=== PATIENT | male | born 1955 | race Asian ===

== ENCOUNTER 2023-07-02 03:32 | Inpatient (IN) | payer MEDICARE, OTHER, SELFPAY ==
[2023-07-02] VITALS (63 sets, daily range): BP systolic 94–177; BP diastolic 55–99; PULSE 19–119; RESP 12–35; TEMP 36.1–37; O2SAT 86–100; BMI 27.4
--- NOTE | 2023-07-02 | PATH_ITS ---
[facility] Accession Number: [id number] No. of containers..01 Tissue . 01 Material submitted: . gallbladder - GALLBLADDER . 01 Diagnosis: Gallbladder, Cholecystectomy: Acute cholecystitis with cholelithiasis and serositis. Negative for dysplasia and malignancy. [facility] 07/06/2023 1434 Local . 01 Electronically signed: . Jacqueline Hagen MD, Pathologist NPI- [id number] . 01 Gross description: . The specimen is received in formalin labeled with the patient's name, , and gallbladder, and consists of a disrupted gallbladder measuring 7.7 x 3.5 x 2.9 cm with a full-thickness defect at the fundus measuring 0.1 cm in greatest dimension. The cystic duct margin is inked blue. A pericystic lymph node is identified measuring 1.1 cm in greatest dimension. The lumen contains two orange-red faceted calculi measuring up to 1.4 cm in greatest dimension not grossly obstructing the cystic duct, with minimal peacock viscous bile. The mucosa is pink-peacock and velvety with no yellow discoloration, polyps, or lesions identified. The prieot average 0.4 cm thick. [employer] sections to include the cystic duct margin, one-half of the bisected lymph node candidate, and full-thickness sections are submitted in cassette A1. ([id number]) /FRR 07/03/20232023 Local . 01 Pathologist provided ICD-10: K80.62 . 01 CPT . 418892 Specimen Comment: A courtesy copy of this report has been sent to [phone] Performed at: 01 [facility] [address] [place] [address], [place], [place] [id number] MD Jasvir Garcia MD Phone: [phone]
--- NOTE | 2023-07-02 03:40 | DI.RAD.S_ITS ---
PROCEDURE: XR ACUTE ABDOMEN SERIES INDICATIONS: Abdominal pain, N/V TECHNIQUE: One view chest and two views of the abdomen were acquired. COMPARISON: None. FINDINGS: Surgical changes and devices: None. Chest: Lungs are clear. Heart size is normal. No pleural effusions. No pneumoperitoneum. Abdomen: Bowel gas pattern is normal. No suspicious calcifications. Visualized solid organ contours appear normal. Moderate colonic stool load. Bones: No suspicious bony lesions. IMPRESSION: No acute abnormality. Agree with preliminary report. Dictated by: Deyvi Fitzpatrick M.D. on 07/02/2023 at 8:12 Approved by: Deyvi Fitzpatrick M.D. on 07/02/2023 at 8:13
--- NOTE | 2023-07-02 03:41 | ED.GENADULT ---
HPI - General Adult General Chief complaint: Abdominal Pain Stated complaint: food posioning Time Seen by Provider: 07/02/23 03:34 History of Present Illness HPI narrative: 68-year-old male nonsmoker with history of diabetes on insulin presents with family in the chief complaint of 4-5 hours of multiple episodes of vomiting in crampy abdominal pain. He is concerned that maybe he ate something bad but admits nobody else in his group feels ill. He denies runny nose, sore throat or cough. He is had no chest pain or shortness of breath. His abdominal pain is crampy in nature and without any obvious provocation or palliation. He denies constipation or diarrhea and has no urinary complaints. He denies any missed doses of his diabetic regimen nor any change to his routine. Related Data Allergies Allergy/AdvReac Type Severity Reaction Status Date / Time No Known Drug Allergies Allergy Verified 07/02/23 03:45 Review of Systems Review of Systems Narrative: GENERAL: Denies chills, fatigue, malaise, fever, sweats. HEENT: Denies sinus pain, ear pain, sore throat, difficulty swallowing, dizziness. RESPIRATORY: Denies dyspnea, cough, wheezing, hemoptysis, sputum. CARDIOVASCULAR: Denies chest pain, palpitations, orthopnea, edema, GASTROINTESTINAL: See HPI : Denies dysuria, frequency, incontinence, hematuria, urinary retention. MUSCULOSKELETAL: denies weakness, joint pain, or bony pain SKIN: Denies rash, skin lesions, or other NEUROLOGIC: Denies weakness, headache, numbness, change in speech, confusion, seizures, incoordination. PSYCHIATRIC: No concerning psychosocial issues. 12 point review of systems is negative except for those stated above Patient History Medical History (Updated 07/02/23 @ 06:56 by Ata Henderson DO) Hypertension Diabetes Social History Smoking Status: Never smoker Exam Narrative Exam Narrative: GENERAL: [68] year old patient appears stated age. Well-developed patient, in obvious distress, clearly uncomfortable HEAD: Atraumatic. Normocephalic. EYES: Pupils equal round and reactive. Extraocular motions intact. No scleral icterus. No injection or drainage. ENT: Nose without bleeding, purulent drainage. Throat without erythema, tonsillar hypertrophy or exudate. Airway patent. NECK: Trachea midline. Non tender CARDIOVASCULAR: Regular rate and rhythm without murmurs, gallops, or rubs. RESPIRATORY: Clear to auscultation. Breath sounds equal bilaterally. No wheezes, rales, or rhonchi. GASTROINTESTINAL: Abdomen soft, non-tender, nondistended. EXTREMITIES: No edema or joint tenderness. BACK: Nontender without deformity or crepitance. No flank tenderness. NEURO: AOx3. SKIN: No rash or erythema of visible areas Initial Vital Signs Initial Vital Signs: Vital Signs Pulse Rate 88 07/02/23 03:41 Respiratory Rate 24 07/02/23 03:41 Pulse Oximetry 100 07/02/23 03:41 Course Orders Ordered: ED Orders 07/02/23 03:40 XR acute abdomen series Stat VBG [Venous Blood Gas] Stat 07/02/23 03:59 Comprehensive Metabolic Panel Stat Ketones (Beta-Hydroxybutyrate) Stat Lactate (Lactic Acid) Stat Magnesium Stat 07/02/23 04:25 Complete Blood Count AUTO DIFF Stat 07/02/23 04:50 CT abdomen pelvis w con Stat Urine Microscopic Stat 07/02/23 05:35 US abdomen limited Stat Magnesium Sulfate (Magnesium Sulfate) 2 gm in 50 mls @ 25 mls/hr IV NOW ONE Stop: 07/02/23 07:15 Last Admin: 07/02/23 05:32 Dose: 25 mls/hr Documented By: PRASANNA Co-signed By: LIBERTAD Discontinued Medications Hydromorphone HCl (Hydromorphone 0.5 Mg Inj) 0.5 mg IV NOW ONE Stop: 07/02/23 04:51 Last Admin: 07/02/23 04:53 Dose: 0.5 mg Documented By: Lactated Ringer's (Lactated Ringers) 1,000 mls @ 1,000 mls/hr IV BOLUS ONE Stop: 07/02/23 04:39 Last Infusion: 07/02/23 05:11 Dose: Infused Documented By: Admin: 07/02/23 04:09 Dose: 1,000 mls/hr Documented By: LIBERTAD Lactated Ringer's (Lactated Ringers) 1,000 mls @ 1,000 mls/hr IV BOLUS ONE Stop: 07/02/23 05:49 Last Infusion: 07/02/23 06:25 Dose: Infused Documented By: Admin: 07/02/23 04:56 Dose: 1,000 mls/hr Documented By: Piperacillin Sod/Tazobactam (Sod 4.5 gm/ Sodium Chloride) 100 mls @ 200 mls/hr IV NOW ONE Stop: 07/02/23 05:36 Last Admin: 07/02/23 06:35 Dose: 200 mls/hr Documented By: Metoclopramide HCl (Metoclopramide 10 Mg/2 Ml Inj) 10 mg IV NOW ONE Stop: 07/02/23 03:41 Last Admin: 07/02/23 04:09 Dose: 10 mg Documented By: LIBERTAD Metoprolol Tartrate (Metoprolol Ir 25 Mg Tablet) 25 mg PO NOW ONE Stop: 07/02/23 05:46 Last Admin: 07/02/23 05:50 Dose: 25 mg Documented By: Ondansetron HCl (Ondansetron 4 Mg/2 Ml Inj) 4 mg IV NOW ONE Stop: 07/02/23 04:13 Last Admin: 07/02/23 04:14 Dose: 4 mg Documented By: LIBERTAD Pantoprazole Sodium (Pantoprazole 40 Mg Vial) 40 mg IV NOW ONE Stop: 07/02/23 03:41 Last Admin: 07/02/23 04:09 Dose: 40 mg Documented By: LIBERTAD Reevaluation(s) Reevaluation #1: patient had brief run of nonsustained asymptomatic VT of 6-7 beats. Patient had missed a dose of his metoprolol. No further episodes after back on his metop Consultations Consultation #1: Dr. Bey happy to admit, requests hospitalist consult Consultation #2: Dr. Lee (Hospitalist) happy to consult Vital Signs Vital signs: Vital Signs - 8 hr 07/02/23 03:41 07/02/23 03:42 07/02/23 04:00 Temperature 97.7 F Pulse Rate 88 88 93 H Respiratory Rate 24 18 Blood Pressure 142/68 H Pulse Oximetry 100 100 100 Oxygen Delivery Method Room Air 07/02/23 04:10 07/02/23 04:10 07/02/23 04:43 Temperature Pulse Rate 96 H 101 H Respiratory Rate 29 H Blood Pressure 132/66 Pulse Oximetry 100 100 Oxygen Delivery Method 07/02/23 04:44 07/02/23 04:44 07/02/23 05:00 Temperature Pulse Rate 97 H 106 H Respiratory Rate 22 Blood Pressure 158/91 H Pulse Oximetry 100 100 Oxygen Delivery Method 07/02/23 05:13 07/02/23 05:13 07/02/23 05:30 Temperature Pulse Rate 119 H Respiratory Rate Blood Pressure 177/99 H 164/78 H Pulse Oximetry 100 Oxygen Delivery Method 07/02/23 05:30 07/02/23 06:00 07/02/23 06:00 Temperature Pulse Rate 96 H 97 H Respiratory Rate Blood Pressure 165/87 H Pulse Oximetry 100 99 Oxygen Delivery Method Medical Decision Making Lab Data 07/02/23 04:25 07/02/23 03:59 Labs: Lab Results 07/02/23 07/02/23 07/02/23 Range/Units 03:40 03:59 04:25 WBC 18.7 H (4.5-11.0) X10^3/uL RBC 5.23 (4.5-5.9) X10^6/uL Hgb 15.3 (13.5-17.5) g/dL Hct 46.4 (41-53) % MCV 88.8 (80-100) fL MCH 29.3 (26-34) PG MCHC 33.0 (30-36) % RDW 14.4 (11.6-14.8) % Plt Count 320 (150-400) X10^3/uL Neut % (Auto) Not Reportable Lymph % (Auto) Not Reportable [place] % (Auto) Not Reportable Eos % (Auto) Not Reportable Baso % (Auto) Not Reportable Lymph # (Auto) Not Reportable [place] # (Auto) Not Reportable Baso # (Auto) Not Reportable Total Counted 100 Seg Neutrophils % 84.0 H (38-70) % Band Neutrophils % 2.0 L (3-7) % Lymphocytes % (Manual) 9.0 L (25-45) % Monocytes % (Manual) 5.0 (2-11) % Neutrophils # (Manual) 79386 H (5023-8823) /uL RBC Morphology Normal morphology VBG pH 7.61 H (7.33-7.43) VBG pCO2 19.0 L (45-50) mmHg VBG pO2 22 L (35-45) mmHg VBG HCO3 19 L (24-28) mmol/L VBG Total CO2 19 L (24-29) mmol/L VBG O2 Saturation 52 L (70-75) % VBG Base Excess -3.0 L (0-4) mmol/L FiO2 21 Sodium 139 (137-145) mmol/L Potassium 3.7 (3.4-5.1) mmol/L Chloride 102 (98-107) mmol/L Carbon Dioxide 17 L (22-32) mmol/L BUN 14 (9-20) mg/dL Creatinine 0.86 (0.66-1.25) mg/dL Estimated GFR > 60 (>60) mL/min BUN/Creatinine Ratio 16.3 (6-22) Glucose 241 H (80-110) mg/dL Lactate 5.9 H* (0.7-2.1) mmol/L Calcium 10.2 (8.4-10.2) mg/dL Magnesium 1.5 L (1.6-2.3) mg/dL Total Bilirubin 0.6 (0.2-1.3) mg/dL AST 32 (17-59) IU/L ALT 52 H (<50) IU/L Alkaline Phosphatase 91 (38-126) U/L Total Protein 8.9 H (6.3-8.2) g/dL Albumin 4.7 (3.5-5.0) g/dL Globulin 4.2 H (1.7-4.1) g/dL Albumin/Globulin Ratio 1.1 (1.0-2.8) Urine RBC (0-5/HPF) Urine WBC (0-5/HPF) Ur Squamous Epith Cells (0-5/HPF) Urine Bacteria (None) Ur Culture Indicated? Ketones 0.64 H (<0.27) mmol/L 07/02/23 07/02/23 Range/Units 04:50 05:55 WBC (4.5-11.0) X10^3/uL RBC (4.5-5.9) X10^6/uL Hgb (13.5-17.5) g/dL Hct (41-53) % MCV (80-100) fL MCH (26-34) PG MCHC (30-36) % RDW (11.6-14.8) % Plt Count (150-400) X10^3/uL Neut % (Auto) Lymph % (Auto) [place] % (Auto) Eos % (Auto) Baso % (Auto) Lymph # (Auto) [place] # (Auto) Baso # (Auto) Total Counted Seg Neutrophils % (38-70) % Band Neutrophils % (3-7) % Lymphocytes % (Manual) (25-45) % Monocytes % (Manual) (2-11) % Neutrophils # (Manual) (3470-7625) /uL RBC Morphology VBG pH (7.33-7.43) VBG pCO2 (45-50) mmHg VBG pO2 (35-45) mmHg VBG HCO3 (24-28) mmol/L VBG Total CO2 (24-29) mmol/L VBG O2 Saturation (70-75) % VBG Base Excess (0-4) mmol/L FiO2 Sodium (137-145) mmol/L Potassium (3.4-5.1) mmol/L Chloride (98-107) mmol/L Carbon Dioxide (22-32) mmol/L BUN (9-20) mg/dL Creatinine (0.66-1.25) mg/dL Estimated GFR (>60) mL/min BUN/Creatinine Ratio (6-22) Glucose (80-110) mg/dL Lactate 4.9 H* (0.7-2.1) mmol/L Calcium (8.4-10.2) mg/dL Magnesium (1.6-2.3) mg/dL Total Bilirubin (0.2-1.3) mg/dL AST (17-59) IU/L ALT (<50) IU/L Alkaline Phosphatase (38-126) U/L Total Protein (6.3-8.2) g/dL Albumin (3.5-5.0) g/dL Globulin (1.7-4.1) g/dL Albumin/Globulin Ratio (1.0-2.8) Urine RBC None seen (0-5/HPF) Urine WBC None seen (0-5/HPF) Ur Squamous Epith Cells None seen (0-5/HPF) Urine Bacteria None seen (None) Ur Culture Indicated? Cult not indicated Ketones (<0.27) mmol/L Point of Care Testing Glucose POC 225 Urine Dip Bedside Urine Glucose 1000 mg/dl Bedside Urine Bilirubin - Negative Bedside Urine Ketone ++ 40 Urine Specific [place] 1.01 Bedside Urine Occult Blood - Negative Bedside Urine pH 6 Bedside Urine Protein - Negative Bedside Urine Urobilinogen - Negative Bedside Urine Nitrite - Negative Bedside Urine Leukocytes - Negative Esterase Point of care testing: Point of Care Testing Glucose POC 225 Urine Dip Bedside Urine Glucose 1000 mg/dl Bedside Urine Bilirubin - Negative Bedside Urine Ketone ++ 40 Urine Specific [place] 1.01 Bedside Urine Occult Blood - Negative Bedside Urine pH 6 Bedside Urine Protein - Negative Bedside Urine Urobilinogen - Negative Bedside Urine Nitrite - Negative Bedside Urine Leukocytes - Negative Esterase MDM Narrative Medical decision making narrative: [68] year old patient presents with nausea vomiting abdominal pain Multiple etiologies for patient's symptoms considered including, but not limited to: [diabetic complication vs. bowel obstruction vs. foodborne illness vs. other] Prior Charts reviewed in our EMR Primary Historian: patient Labs reviewed and interpreted by myself: Leukocytosis with relative left shift, primary electrolytes within normal limits, and CO2 slightly down at 17, renal function 0.86. Glucose initially 241, after fluids down to the 140s. Initial lactate 5.9, down to 4.9, initial magnesium 1.5 (prior to replacement). Bilirubin 0.6, AST 32, ALT 52, alk-phos 91 Imaging reviewed: CT of abdomen and pelvis demonstrates acute cholecystitis with possible choledocholithiasis. Ultrasound shows acute cholecystitis with stones lodged in the neck with gallbladder thickening and sludge Consultations: Discussed with on-call General surgery, we sure the opinion that patient is likely cholecystitis, choledocholithiasis seems unlikely given lack of obstructive pattern of labs. Patient's symptoms improved over duration of stay with above-stated therapies. Pain well controlled, vital signs stable, no longer vomiting, blood sugar improved, lactate improving. Discharge Plan Departure Patient Disposition: Admitted As Inpatient Clinical Impression: Acute cholecystitis, Cholelithiasis, Hypomagnesemia, Acute hyperglycemia, Arrhythmia Admit Date/Time: 07/02/23 06:41 Admit Provider: Parviz Bey
[2023-07-02 03:58] LABS: HCO3 VBG 19 mmol/L (24-28); PO2 VBG 22 mmHg (35-45); pH VBG 7.61 (7.33-7.43)
[2023-07-02 03:59] LABS: Fractionated Inspired Oxygen 21; Oxygen Saturation VBG 52 % (70-75); Total CO2 VBG 19 mmol/L (24-29)
[2023-07-02] MEDS: PANTOPRAZOLE 40 MG VIAL IV (04:09)
[2023-07-02] MEDS: LACTATED RINGERS 1,000 ML 1000 ML IV ×2 (04:09→04:56)
[2023-07-02] MEDS: METOCLOPRAMIDE 10 MG/2 ML INJ IV (04:09)
[2023-07-02] MEDS: ONDANSETRON 4 MG/2 ML INJ IV (04:14)
[2023-07-02 04:20] LABS: Alanine Aminotransferase 52 IU/L (<50); Albumin 4.7 g/dL (3.5-5.0); Albumin Globulin Ratio 1.1 (1.0-2.8); Alkaline Phosphatase 91 U/L (38-126); Aspartate Aminotransferase 32 IU/L (17-59); BUN Creatinine Ratio 16.3 (6-22); Bilirubin Total 0.6 mg/dL (0.2-1.3); Blood Urea Nitrogen 14 mg/dL (9-20); Calcium 10.2 mg/dL (8.4-10.2); Carbon Dioxide 17 mmol/L (22-32); Chloride 102 mmol/L (98-107); Estimated Glomerular Filt Rate > 60 mL/min (>60); Globulin 4.2 g/dL (1.7-4.1); Glucose 241 mg/dL (80-110); Magnesium 1.5 mg/dL (1.6-2.3); Potassium 3.7 mmol/L (3.4-5.1); Sodium 139 mmol/L (137-145); Total Protein 8.9 g/dL (6.3-8.2)
[2023-07-02 04:24] LABS: Ketones (Beta-Hydroxybutyrate) 0.64 mmol/L (<0.27)
[2023-07-02 04:27] LABS: HEMOLYSIS 61 (0-50)
[2023-07-02 04:29] LABS: Lactate (Lactic Acid) 5.9 mmol/L (0.7-2.1)
[2023-07-02 04:38] LABS: Add Manual Diff / Slide Review YES; Hematocrit 46.4 % (41-53); Hemoglobin 15.3 g/dL (13.5-17.5); Mean Corpuscular Hemoglobin 29.3 PG (26-34); Mean Corpuscular Volume 88.8 fL (80-100); Platelet Count 320 X10^3/uL (150-400); Red Blood Cell Count 5.23 X10^6/uL (4.5-5.9); Red Cell Distribution Width 14.4 % (11.6-14.8); White Blood Cell Count 18.7 X10^3/uL (4.5-11.0)
--- NOTE | 2023-07-02 04:50 | DI.CT.S_ITS ---
PROCEDURE: CT ABDOMEN PELVIS W CON INDICATIONS: severe abdominal pain, N/V TECHNIQUE: After the administration of IV contrast, axial sections were acquired from the lung bases to the pubic symphysis. Coronal and sagittal reformats were performed. For radiation dose reduction, the following was used: automated exposure control, adjustment of mA and/or kV according to patient size. COMPARISON: [facility], CR, XR ACUTE ABDOMEN SERIES, 07/02/2023, 4:18. [facility], US, US ABDOMEN LIMITED, 07/02/2023, 6:03. FINDINGS: Image quality: Excellent. Lung bases: No pleural effusion. Heart: Coronary artery calcifications. ABDOMEN: Liver: No focal lesion. Gallbladder: Distended. Gallstones near the neck. No pericholecystic fluid is appreciated. Biliary ducts: CBD measures 1.4 cm. There is a heterogeneous appearance within the CBD. Increased conspicuity within the intrahepatic bile ducts. Pancreas: No pancreatic ductal dilatation. No peripancreatic fluid collection. Spleen: No splenomegaly. Adrenal Glands: No nodule. Kidneys and Ureters: No hydronephrosis. Small nonobstructing left kidney stone measuring 0.4 cm. Small benign renal cysts. Stomach and Bowel: Small hiatal hernia. No small bowel obstruction. No diverticulitis. Normal appendix. Peritoneum: No abnormal intraperitoneal fluid. No free air. Ventral Wall: No hernia. Abdominal Nodes: No retroperitoneal or mesenteric adenopathy by size criteria. Vessels: Aorta and inferior vena cava are normal in size. PELVIS: Pelvic Organs: Prominent prostate gland. Bladder: No stone. Pelvic Nodes: No enlarged lymph nodes. Miscellaneous: Probable fat containing right inguinal hernia. Bones: No suspicious lesion. Bilateral L5 pars defect. IMPRESSION: 1. Suspect choledocholithiasis. Biliary ductal dilatation. ERCP and/or MRCP are recommended. 2. Suspect acute cholecystitis. This report is concordant with the overnight preliminary interpretation. Dictated by: Ascencion Lang M.D. on 07/02/2023 at 9:00 Approved by: Ascencion Lang M.D. on 07/02/2023 at 9:13
[2023-07-02] MEDS: HYDROMORPHONE 0.5 MG INJ IV ×3 (04:53→07:57)
[2023-07-02] MEDS: MAGNESIUM SULFATE 2 GM/50 ML PIGGYBACK IV (05:32)
--- NOTE | 2023-07-02 05:35 | DI.US.S_ITS ---
PROCEDURE: US ABDOMEN LIMITED INDICATIONS: PAIN, N/V TECHNIQUE: Real-time scanning was performed of the abdominal and retroperitoneal organs, with image documentation. COMPARISON: None. FINDINGS: Liver: Increased liver echogenicity with posterior attenuation, most consistent with moderate to severe steatosis. Gallbladder: Cholelithiasis, with non mobile gallstones in the neck. Positive sonographic Stevenson sign. Gallbladder hydrops. No wall thickening. Biliary ducts: Intrahepatic bile ducts are non-dilated. Extrahepatic bile duct caliber measures 8 mm. Normal is 6-7 mm or less in diameter, or 10 mm or less post-cholecystectomy. Miscellaneous: No free abdominal fluid. IMPRESSION: Nonmobile gallstones, positive sonographic Stevenson sign and gallbladder distension. Findings consistent with acute cholecystitis. At least moderate hepatic steatosis. Agree with preliminary report. Dictated by: Deyvi Fitzpatrick M.D. on 07/02/2023 at 8:14 Approved by: Deyvi Fitzpatrick M.D. on 07/02/2023 at 8:16
[2023-07-02 05:36] LABS: Bacteria Urine None Seen; Culture Indicated Urine Cult Not Indicated; RBC Urine None Seen (0-5/HPF); Squamous Epithelial Cell Urine None Seen (0-5/HPF); WBC Urine None Seen (0-5/HPF)
[2023-07-02 05:43] LABS: Neutrophils Absolute Manual 16082 /uL (3000-5900); Total Cells Counted 100
[2023-07-02 05:44] LABS: RBC Morphology Normal Morphology
--- NOTE | 2023-07-02 05:46 | PC.NURSE ---
Pt with frequent runs of PVCs noted. EKG completed and shown to provider. Pt reports he has a heart condition and is suppose to take metoprolol.
[2023-07-02] MEDS: METOPROLOL IR 25 MG TABLET PO (05:50)
[2023-07-02 06:05] LABS: Reflexed Lactate in 2 Hours Y
[2023-07-02 06:30] LABS: Lactate 2HR (Lactic Acid Rflx) 4.9 mmol/L (0.7-2.1)
[2023-07-02] MEDS: PIPERACILLIN/TAZO 4.5 GM in SODIUM CHLORIDE 0.9% 100 ML IV (06:35)
--- NOTE | 2023-07-02 07:03 | PC.NURSE ---
Pt placed on 2L nasal cannula. Pt desating to 84% on RA, sleeping, after dilaudid adminstration.
--- NOTE | 2023-07-02 07:28 | PM.CALLCOV.1 ---
Call Coverage Note Note Date of Patient Contact: 07/02/23 Time of Patient Contact: 07:28 Narrative of Care Provided: 68M acute cholecystitis add on for today 07/02 LAP CHOLECYSTECTOMY
[2023-07-02] MEDS: LACTATED RINGERS 1,000 ML 100 ML IV (07:58)
[2023-07-02] MEDS: PIPERACILLIN/TAZO 3.375 GM in SODIUM CHLORIDE 0.9% 100 ML IV (08:14)
[2023-07-02] MEDS: INSULIN GLARGINE 100 UNIT/ML 3ML PEN 15 UNIT SUBCUT (09:23)
--- NOTE | 2023-07-02 10:46 | PM.HP.1 ---
History of Present Illness History of Present Illness Date Patient Seen: 07/02/23 Time Patient Seen: 10:46 Date of Onset of Symptoms: 07/01/23 Chief complaint: food posioning Narrative: Acute cholecystitis with hyperglycemia and underlying diabetes. Started feeling unwell yesterday. Nausea, RUQ tenderness to palpation. No previous abdominal surgery. [facility] Medical History Hypertension Diabetes Social History household members: spouse and children Smoking Status: Never smoker alcohol intake: former Meds Home Medications and Allergies Home Medications Medication Instructions Recorded Confirmed Type Aspir-81 81 mg PO DAILY 07/02/23 07/02/23 History amlodipine 10 mg PO DAILY 07/02/23 07/02/23 History atorvastatin 80 mg PO DAILY 07/02/23 07/02/23 History empagliflozin 25 mg PO DAILY 07/02/23 07/02/23 History escitalopram oxalate 20 mg PO DAILY 07/02/23 07/02/23 History insulin glargine 30 units SUBCUT ONCE HS 07/02/23 07/02/23 History losartan 100 mg PO DAILY 07/02/23 07/02/23 History metformin 1,000 mg PO DAILY 07/02/23 07/02/23 History metoprolol succinate 50 mg PO DAILY 07/02/23 07/02/23 History Allergies Allergy/AdvReac Type Severity Reaction Status Date / Time No Known Drug Allergies Allergy Verified 07/02/23 03:45 Review of Systems Review of Systems ROS: Yes All systems reviewed with the patient and are negative except as otherwise documented Exam Vital Signs (past 8 hours): - 07/02/23 03:41 07/02/23 03:42 07/02/23 04:00 Temperature 97.7 F Pulse Rate 88 88 93 H Respiratory Rate 24 18 Blood Pressure 142/68 H Pulse Oximetry 100 100 100 Oxygen Delivery Method Room Air Oxygen Flow Rate 07/02/23 04:10 07/02/23 04:10 07/02/23 04:43 Temperature Pulse Rate 96 H 101 H Respiratory Rate 29 H Blood Pressure 132/66 Pulse Oximetry 100 100 Oxygen Delivery Method Oxygen Flow Rate 07/02/23 04:44 07/02/23 04:44 07/02/23 05:00 Temperature Pulse Rate 97 H 106 H Respiratory Rate 22 Blood Pressure 158/91 H Pulse Oximetry 100 100 Oxygen Delivery Method Oxygen Flow Rate 07/02/23 05:13 07/02/23 05:13 07/02/23 05:30 Temperature Pulse Rate 119 H Respiratory Rate Blood Pressure 177/99 H 164/78 H Pulse Oximetry 100 Oxygen Delivery Method Oxygen Flow Rate 07/02/23 05:30 07/02/23 06:00 07/02/23 06:00 Temperature Pulse Rate 96 H 97 H Respiratory Rate Blood Pressure 165/87 H Pulse Oximetry 100 99 Oxygen Delivery Method Oxygen Flow Rate 07/02/23 06:30 07/02/23 06:30 07/02/23 06:31 Temperature Pulse Rate 97 H 100 H Respiratory Rate 28 H 27 H Blood Pressure 158/80 H Pulse Oximetry 99 98 Oxygen Delivery Method Room Air Oxygen Flow Rate 07/02/23 06:32 07/02/23 06:33 07/02/23 06:34 Temperature Pulse Rate 100 H 99 H 97 H Respiratory Rate 26 H 28 H 25 H Blood Pressure Pulse Oximetry 99 99 98 Oxygen Delivery Method Oxygen Flow Rate 07/02/23 06:35 07/02/23 06:36 07/02/23 06:37 Temperature Pulse Rate 100 H 99 H 99 H Respiratory Rate 26 H 25 H 25 H Blood Pressure Pulse Oximetry 99 99 99 Oxygen Delivery Method Oxygen Flow Rate 07/02/23 06:38 07/02/23 06:39 07/02/23 06:40 Temperature Pulse Rate 105 H 109 H 109 H Respiratory Rate 30 H 26 H 27 H Blood Pressure Pulse Oximetry 99 99 98 Oxygen Delivery Method Oxygen Flow Rate 07/02/23 06:41 07/02/23 06:42 07/02/23 06:43 Temperature Pulse Rate 105 H 100 H 99 H Respiratory Rate 35 H 34 H 29 H Blood Pressure Pulse Oximetry 97 97 98 Oxygen Delivery Method Oxygen Flow Rate 07/02/23 06:44 07/02/23 06:45 07/02/23 06:46 Temperature Pulse Rate 97 H 101 H 98 H Respiratory Rate 27 H 34 H 30 H Blood Pressure Pulse Oximetry 99 99 99 Oxygen Delivery Method Oxygen Flow Rate 07/02/23 06:47 07/02/23 06:48 07/02/23 06:49 Temperature Pulse Rate 98 H 97 H 96 H Respiratory Rate 32 H 31 H 30 H Blood Pressure Pulse Oximetry 99 99 99 Oxygen Delivery Method Oxygen Flow Rate 07/02/23 06:50 07/02/23 06:51 07/02/23 06:52 Temperature Pulse Rate 96 H 96 H 96 H Respiratory Rate 29 H 30 H 27 H Blood Pressure Pulse Oximetry 99 99 99 Oxygen Delivery Method Oxygen Flow Rate 07/02/23 06:53 07/02/23 06:54 07/02/23 06:55 Temperature Pulse Rate 95 H 93 H 91 H Respiratory Rate 31 H 32 H 21 Blood Pressure Pulse Oximetry 99 99 97 Oxygen Delivery Method Oxygen Flow Rate 07/02/23 06:56 07/02/23 06:57 07/02/23 06:58 Temperature Pulse Rate 90 90 91 H Respiratory Rate 17 25 H 29 H Blood Pressure Pulse Oximetry 94 91 96 Oxygen Delivery Method Oxygen Flow Rate 07/02/23 06:59 07/02/23 07:00 07/02/23 07:00 Temperature Pulse Rate 91 H 89 Respiratory Rate 30 H 22 Blood Pressure 135/74 Pulse Oximetry 98 89 L Oxygen Delivery Method Oxygen Flow Rate 07/02/23 07:01 07/02/23 07:02 07/02/23 07:03 Temperature Pulse Rate 89 88 85 Respiratory Rate 26 H 25 H 12 Blood Pressure Pulse Oximetry 86 L 88 L 99 Oxygen Delivery Method Room Air Nasal Cannula Oxygen Flow Rate 2 07/02/23 07:50 07/02/23 08:00 07/02/23 08:00 Temperature 97.8 F Pulse Rate 88 Respiratory Rate 18 Blood Pressure 144/77 H Pulse Oximetry 98 98 98 Oxygen Delivery Method Room Air Room Air Oxygen Flow Rate 0 0 07/02/23 10:38 Temperature 98.1 F Pulse Rate 88 Respiratory Rate 16 Blood Pressure 123/77 Pulse Oximetry 95 Oxygen Delivery Method Room Air Oxygen Flow Rate Oxygen Delivery Method Room Air Oxygen Flow Rate 0 Const General: cooperative and ill appearing Nutritional Appearance: well nourished Orientation: alert, awake and oriented x3 HENMT Head: normal to inspection, normocephalic and atraumatic Ears: hearing grossly normal bilaterally Face and sinus: normal facial exam Eyes Periorbital: periorbital findings normal Sclera: sclerae normal Neck Neck: trachea midline Resp Effort & Inspection: normal respiratory effort and able to speak in complete sentences Cardio Rate: tachycardic Rhythm: regular rhythm GI Palpation: soft and tender (midepigastric tenderness to deep palpation. ) Skin General: turgor normal Neuro General: patient alert, patient awake and patient oriented x3 Extrem General: no pedal edema Psych Appearance: grossly normal Affect: normal affect Judgment: judgment good Objective Labs 07/02/23 04:25 07/02/23 03:59 Labs: Laboratory Results - last 24 hr 07/02/23 07/02/23 07/02/23 03:40 03:59 04:25 WBC 18.7 H RBC 5.23 Hgb 15.3 Hct 46.4 MCV 88.8 MCH 29.3 MCHC 33.0 RDW 14.4 Plt Count 320 Neut % (Auto) Not Reportable Lymph % (Auto) Not Reportable [place] % (Auto) Not Reportable Eos % (Auto) Not Reportable Baso % (Auto) Not Reportable Lymph # (Auto) Not Reportable [place] # (Auto) Not Reportable Baso # (Auto) Not Reportable Total Counted 100 Seg Neutrophils % 84.0 H Band Neutrophils % 2.0 L Lymphocytes % (Manual) 9.0 L Monocytes % (Manual) 5.0 Neutrophils # (Manual) 44157 H RBC Morphology Normal morphology VBG pH 7.61 H VBG pCO2 19.0 L VBG pO2 22 L VBG HCO3 19 L VBG Total CO2 19 L VBG O2 Saturation 52 L VBG Base Excess -3.0 L FiO2 21 Sodium 139 Potassium 3.7 Chloride 102 Carbon Dioxide 17 L BUN 14 Creatinine 0.86 Estimated GFR > 60 BUN/Creatinine Ratio 16.3 Glucose 241 H Lactate 5.9 H* Calcium 10.2 Magnesium 1.5 L Total Bilirubin 0.6 AST 32 ALT 52 H Alkaline Phosphatase 91 Total Protein 8.9 H Albumin 4.7 Globulin 4.2 H Albumin/Globulin Ratio 1.1 Urine RBC Urine WBC Ur Squamous Epith Cells Urine Bacteria Ur Culture Indicated? Ketones 0.64 H 07/02/23 07/02/23 07/02/23 04:50 05:55 08:15 WBC RBC Hgb Hct MCV MCH MCHC RDW Plt Count Neut % (Auto) Lymph % (Auto) [place] % (Auto) Eos % (Auto) Baso % (Auto) Lymph # (Auto) [place] # (Auto) Baso # (Auto) Total Counted Seg Neutrophils % Band Neutrophils % Lymphocytes % (Manual) Monocytes % (Manual) Neutrophils # (Manual) RBC Morphology VBG pH VBG pCO2 VBG pO2 VBG HCO3 VBG Total CO2 VBG O2 Saturation VBG Base Excess FiO2 Sodium Potassium Chloride Carbon Dioxide BUN Creatinine Estimated GFR BUN/Creatinine Ratio Glucose Lactate 4.9 H* 2.0 Calcium Magnesium Total Bilirubin AST ALT Alkaline Phosphatase Total Protein Albumin Globulin Albumin/Globulin Ratio Urine RBC None seen Urine WBC None seen Ur Squamous Epith Cells None seen Urine Bacteria None seen Ur Culture Indicated? Cult not indicated Ketones Assessment & Plan Assessment & Plan narrative: Acute cholecystitis, hyperglycemia and hypertension Plan: Mary benton Time Spent With Patient Time with patient: 30 to 49 minutes with 50% spent counseling/coordinating care
--- NOTE | 2023-07-02 11:37 | SUR.OPER ---
Supine on padded OR bed, head on pillow, arms secured on padded arm boards at <90 degrees abduction, legs uncrossed, safety belt at thigh, tape over blanket over lower legs.
--- NOTE | 2023-07-02 11:45 | PM.CN ---
History of Present Illness Consult details Date Patient Seen: 07/02/23 Time Patient Seen: 08:15 Chief complaint: food posioning Reason for consult: diabetes Requesting provider: Parviz Bey Narrative: 68 M with PMH of CAD with 2 prior stents, IDDM (type 2), HTN who presented with abdominal pain, nausea and vomiting that started yesterday evening. He was found to have acute cholecystitis after initial evaluation and admitted to the general surgery service. He feels improved but pain 6/10 currently. He is receiving fluids and antibiotics. He had an elevated lactate which improved to normal with fluid. He had a metabolic acidosis with respiratory alkalosis based on biarb of 17 and VBG with pH of 7.6 and PCO2 of 19. Mg was 1.5. He is on zosyn and fluids. EKG shows NSR with no acute ischemia and he denies chest pain. He had a reported episodes of NSVT in the emergency room and was given a dose of metoprolol. He had not been given any insulin since arrival. Upon review, slight worsening of his bicarb and elevated gap, I ordered him for about half of his home dosing of lantus along with a sliding scale. Repeat labs ordered for later in the morning prior to surgery to make sure no development of DKA. Meds Home Medications and Allergies Home Medications Medication Instructions Recorded Confirmed Type Aspir-81 81 mg PO DAILY 07/02/23 07/02/23 History amlodipine 10 mg PO DAILY 07/02/23 07/02/23 History atorvastatin 80 mg PO DAILY 07/02/23 07/02/23 History empagliflozin 25 mg PO DAILY 07/02/23 07/02/23 History escitalopram oxalate 20 mg PO DAILY 07/02/23 07/02/23 History insulin glargine 30 units SUBCUT ONCE HS 07/02/23 07/02/23 History losartan 100 mg PO DAILY 07/02/23 07/02/23 History metformin 1,000 mg PO DAILY 07/02/23 07/02/23 History metoprolol succinate 50 mg PO DAILY 07/02/23 07/02/23 History Allergies Allergy/AdvReac Type Severity Reaction Status Date / Time No Known Drug Allergies Allergy Verified 07/02/23 03:45 Review of Systems Review of Systems Narrative: All other systems reviewed with the patient and are negative unless otherwise stated. Exam Vital Signs (past 8 hours): - 07/02/23 04:00 07/02/23 04:10 07/02/23 04:10 Temperature Pulse Rate 93 H 96 H Respiratory Rate Blood Pressure 132/66 Pulse Oximetry 100 100 Oxygen Delivery Method Oxygen Flow Rate 07/02/23 04:43 07/02/23 04:44 07/02/23 04:44 Temperature Pulse Rate 101 H 97 H Respiratory Rate 29 H 22 Blood Pressure 158/91 H Pulse Oximetry 100 100 Oxygen Delivery Method Oxygen Flow Rate 07/02/23 05:00 07/02/23 05:13 07/02/23 05:13 Temperature Pulse Rate 106 H 119 H Respiratory Rate Blood Pressure 177/99 H Pulse Oximetry 100 100 Oxygen Delivery Method Oxygen Flow Rate 07/02/23 05:30 07/02/23 05:30 07/02/23 06:00 Temperature Pulse Rate 96 H Respiratory Rate Blood Pressure 164/78 H 165/87 H Pulse Oximetry 100 Oxygen Delivery Method Oxygen Flow Rate 07/02/23 06:00 07/02/23 06:30 07/02/23 06:30 Temperature Pulse Rate 97 H 97 H Respiratory Rate 28 H Blood Pressure 158/80 H Pulse Oximetry 99 99 Oxygen Delivery Method Room Air Oxygen Flow Rate 07/02/23 06:31 07/02/23 06:32 07/02/23 06:33 Temperature Pulse Rate 100 H 100 H 99 H Respiratory Rate 27 H 26 H 28 H Blood Pressure Pulse Oximetry 98 99 99 Oxygen Delivery Method Oxygen Flow Rate 07/02/23 06:34 07/02/23 06:35 07/02/23 06:36 Temperature Pulse Rate 97 H 100 H 99 H Respiratory Rate 25 H 26 H 25 H Blood Pressure Pulse Oximetry 98 99 99 Oxygen Delivery Method Oxygen Flow Rate 07/02/23 06:37 07/02/23 06:38 07/02/23 06:39 Temperature Pulse Rate 99 H 105 H 109 H Respiratory Rate 25 H 30 H 26 H Blood Pressure Pulse Oximetry 99 99 99 Oxygen Delivery Method Oxygen Flow Rate 07/02/23 06:40 07/02/23 06:41 07/02/23 06:42 Temperature Pulse Rate 109 H 105 H 100 H Respiratory Rate 27 H 35 H 34 H Blood Pressure Pulse Oximetry 98 97 97 Oxygen Delivery Method Oxygen Flow Rate 07/02/23 06:43 07/02/23 06:44 07/02/23 06:45 Temperature Pulse Rate 99 H 97 H 101 H Respiratory Rate 29 H 27 H 34 H Blood Pressure Pulse Oximetry 98 99 99 Oxygen Delivery Method Oxygen Flow Rate 07/02/23 06:46 07/02/23 06:47 07/02/23 06:48 Temperature Pulse Rate 98 H 98 H 97 H Respiratory Rate 30 H 32 H 31 H Blood Pressure Pulse Oximetry 99 99 99 Oxygen Delivery Method Oxygen Flow Rate 07/02/23 06:49 07/02/23 06:50 07/02/23 06:51 Temperature Pulse Rate 96 H 96 H 96 H Respiratory Rate 30 H 29 H 30 H Blood Pressure Pulse Oximetry 99 99 99 Oxygen Delivery Method Oxygen Flow Rate 07/02/23 06:52 07/02/23 06:53 07/02/23 06:54 Temperature Pulse Rate 96 H 95 H 93 H Respiratory Rate 27 H 31 H 32 H Blood Pressure Pulse Oximetry 99 99 99 Oxygen Delivery Method Oxygen Flow Rate 07/02/23 06:55 07/02/23 06:56 07/02/23 06:57 Temperature Pulse Rate 91 H 90 90 Respiratory Rate 21 17 25 H Blood Pressure Pulse Oximetry 97 94 91 Oxygen Delivery Method Oxygen Flow Rate 07/02/23 06:58 07/02/23 06:59 07/02/23 07:00 Temperature Pulse Rate 91 H 91 H 89 Respiratory Rate 29 H 30 H 22 Blood Pressure Pulse Oximetry 96 98 89 L Oxygen Delivery Method Oxygen Flow Rate 07/02/23 07:00 07/02/23 07:01 07/02/23 07:02 Temperature Pulse Rate 89 88 Respiratory Rate 26 H 25 H Blood Pressure 135/74 Pulse Oximetry 86 L 88 L Oxygen Delivery Method Room Air Oxygen Flow Rate 07/02/23 07:03 07/02/23 07:50 07/02/23 08:00 Temperature Pulse Rate 85 Respiratory Rate 12 Blood Pressure Pulse Oximetry 99 98 98 Oxygen Delivery Method Nasal Cannula Room Air Room Air Oxygen Flow Rate 2 0 07/02/23 08:00 07/02/23 10:38 Temperature 97.8 F 98.1 F Pulse Rate 88 88 Respiratory Rate 18 16 Blood Pressure 144/77 H 123/77 Pulse Oximetry 98 95 Oxygen Delivery Method Room Air Oxygen Flow Rate 0 Oxygen Delivery Method Room Air Oxygen Flow Rate 0 Narrative Exam Narrative: General:? Patient is well developed and well nourished, in no distress at this time. HEENT:? Normocephalic, atraumatic, extraocular muscles intact, oral pharynx is clear and mucous membranes are moist. Neck: supple and symmetric, trachea is midline, no cervical adenopathy. Chest:? Normal AP diameter and contour without kyphoscoliosis, no tachypnea, equal chest rise bilaterally. Lungs:? CTA b/l no wheezing rhonchi or rales. Cardio:?RRR no m/r/g. Abdomen: Soft, tender RUQ without guarding, no distension Musculoskeletal:? Muscle strength and tone are equal within normal limits, no deformity. Extremities: No edema or joint effusions. No cyanosis or clubbing. Skin:? Pale,? Warm to touch,dry and intact without rashes, ulcerations or petechiae.? Neuro:? Alert and orientated x3,? sensation to touch intact in all extremities, no gross deficits noted of cranial nerves. Psych:? Patient has a well-kept appearance, appropriate affect, mental status attitude thought context and judgment are appropriate for age. Objective ECG Impression: NSR with occasional premature supraventricular contractions. Labs 07/02/23 04:25 07/02/23 03:59 Labs: Laboratory Results - last 24 hr 07/02/23 07/02/23 07/02/23 03:40 03:59 04:25 WBC 18.7 H RBC 5.23 Hgb 15.3 Hct 46.4 MCV 88.8 MCH 29.3 MCHC 33.0 RDW 14.4 Plt Count 320 Neut % (Auto) Not Reportable Lymph % (Auto) Not Reportable [place] % (Auto) Not Reportable Eos % (Auto) Not Reportable Baso % (Auto) Not Reportable Lymph # (Auto) Not Reportable [place] # (Auto) Not Reportable Baso # (Auto) Not Reportable Total Counted 100 Seg Neutrophils % 84.0 H Band Neutrophils % 2.0 L Lymphocytes % (Manual) 9.0 L Monocytes % (Manual) 5.0 Neutrophils # (Manual) 83646 H RBC Morphology Normal morphology VBG pH 7.61 H VBG pCO2 19.0 L VBG pO2 22 L VBG HCO3 19 L VBG Total CO2 19 L VBG O2 Saturation 52 L VBG Base Excess -3.0 L FiO2 21 Sodium 139 Potassium 3.7 Chloride 102 Carbon Dioxide 17 L BUN 14 Creatinine 0.86 Estimated GFR > 60 BUN/Creatinine Ratio 16.3 Glucose 241 H Lactate 5.9 H* Calcium 10.2 Magnesium 1.5 L Total Bilirubin 0.6 AST 32 ALT 52 H Alkaline Phosphatase 91 Total Protein 8.9 H Albumin 4.7 Globulin 4.2 H Albumin/Globulin Ratio 1.1 Urine RBC Urine WBC Ur Squamous Epith Cells Urine Bacteria Ur Culture Indicated? Ketones 0.64 H 07/02/23 07/02/23 07/02/23 04:50 05:55 08:15 WBC RBC Hgb Hct MCV MCH MCHC RDW Plt Count Neut % (Auto) Lymph % (Auto) [place] % (Auto) Eos % (Auto) Baso % (Auto) Lymph # (Auto) [place] # (Auto) Baso # (Auto) Total Counted Seg Neutrophils % Band Neutrophils % Lymphocytes % (Manual) Monocytes % (Manual) Neutrophils # (Manual) RBC Morphology VBG pH VBG pCO2 VBG pO2 VBG HCO3 VBG Total CO2 VBG O2 Saturation VBG Base Excess FiO2 Sodium Potassium Chloride Carbon Dioxide BUN Creatinine Estimated GFR BUN/Creatinine Ratio Glucose Lactate 4.9 H* 2.0 Calcium Magnesium Total Bilirubin AST ALT Alkaline Phosphatase Total Protein Albumin Globulin Albumin/Globulin Ratio Urine RBC None seen Urine WBC None seen Ur Squamous Epith Cells None seen Urine Bacteria None seen Ur Culture Indicated? Cult not indicated Ketones [facility] Medical History (Updated 07/02/23 @ 11:50 by Adrian Lee DO) CAD (coronary artery disease) Hypertension Diabetes Social History household members: spouse and children Tobacco & Substance Use Smoking Status: Never smoker alcohol intake: former substance use type: does not use Assessment & Plan Assessment & Plan narrative: 1. Acute cholecystitis - elevated lactate on admit, improved with fluids. This is likely in setting of infection combined with metformin use. - continue zosyn - recheck BMP after insulin to see that bicarb is improving. While on Jardiance there is a risk of euglycemic DKA - findings on imaging raise the possibility of choledocholithiasis, though labs not consistent with this, continue to monitor. 2. Type 2 diabetes, possible mild DKA vs lactic acidosis, with concommitant respiratory alkalosis - recheck BMP in a few hours after insulin. Labs could be consistent with mild / borderline DKA but should improve with insulin administration subcutaneously. - ordered half home dosing of lantus this AM, along with sliding scale. - also on Jardiance increases risk of euglycemic dka, glucose levels near 240 on admission. - ketones 0.64 - could also be lactic acidosis given presentation with above cholecystitis. - hold Jardiance for now. - hold metformin until a few days after surgery. 3. CAD - continue home asa 81 mg daily, atorvastatin 80. - He appears medically optimized from a cardiac standpoint prior to surgery, though diabetes you recommend repeat BMP as noted above. 4. HTN - consider holding home BP medications depending on blood pressures moving forward, too early to tell so will hold for now and restart if BP elevated. Hold losartan prior to surgery due to risk of intraoperative hypotension. 5. Acute respiratory failure with hypoxia, resolved. Possible sepsis. - suspect some atelectasis combined with diabetes, O2 saturations of 88% on room air in the ER. Possible sepsis though SOFA score 1. Code: Full, surrogate is patient's spouse I have utilized all available immediate resources to obtain, update, or review the patient's current medications. Medicine will continue to follow along Discussed recommendations with Dr. Bey of surgery. Additional history obtained via surgeon, overnight hospitalist. I have reviewed patient's labs, imaging ,and EKG personally.
[2023-07-02] MEDS: BUPIVACAINE 0.5% (PF) 30 ML, EPINEPHrine 0.15 MG INJ (12:00)
--- NOTE | 2023-07-02 12:08 | PM.OP.1 ---
Operative Date/Time/Diagnoses Date of procedure: 07/02/23 Time of procedure: 12:08 Pre-op diagnosis: Acute cholecystitis Post-op diagnosis: same Procedure & Clinicians Procedure: Laparoscopic cholecystectomy Same procedure as scheduled: Yes Indications: Acute cholecystitis Surgeon: Beth Paul Click Yes if Unassisted: Yes Anesthesia Type: General and Local Operative Notes Findings: Acute cholecystitis Closure Type: primary Specimen(s): other (Gallbladder) Blood products transfused: none Procedure in detail: Preop diagnosis: Acute cholecystitis Postop diagnosis: Same Operative procedure: Laparoscopic cholecystectomy Surgeon: Mary Paul MD Anesthetic: General with ET tube intubation with local Findings: Acute cholecystitis, gallbladder had to be decompressed. Procedure: Patient placed in a supine position. Prepped and draped sterile fashion to expose his abdomen. Infraumbilical port site was placed using open technique a 12 mm port. Insufflation began all other ports were placed under direct vision. These ports included a midepigastric port for a 10 mm size. And 2 5 mm ports in the right lateral abdomen. Gallbladder was decompressed and grasped and pushed cephalad for exposure. Cystic duct was identified, clipped once distally twice proximally and transected. Cystic artery was identified clipped once distally twice proximally and transected. The gallbladder was then removed from the fossa bed with electrocautery. Bleeding of the fossa bed was addressed with electrocautery as well. I then placed the gallbladder into an Endo-Catch bag and pulled it through the infraumbilical port site intact. No spillage of stone. Operative site was irrigated to a clear return prior to removal of all ports. Ports were removed and closure began. Closure consisted of interrupted 0 Vicryl for fascial closure. Skin was closed with a running 4-0 Vicryl. Steri-Strips and sterile dressings were placed. Patient was awakened, extubated, taken to recovery room in stable condition. Needle, instrument, sponge counts were correct Blood loss: 20 mL Specimen: Gallbladder Complications: none Post-operative Condition: stable Disposition: PACU
[2023-07-02] MEDS: ACETAMINOPHEN 325 MG TABLET 650 MG PO ×2 (13:17→18:48)
[2023-07-02] MEDS: GABAPENTIN 300 MG CAPSULE PO ×2 (14:28→21:10)
[2023-07-02 16:01] LABS: BUN Creatinine Ratio 16.2 (6-22); Blood Urea Nitrogen 11 mg/dL (9-20); Calcium 8.5 mg/dL (8.4-10.2); Carbon Dioxide 24 mmol/L (22-32); Chloride 104 mmol/L (98-107); Estimated Glomerular Filt Rate > 60 mL/min (>60); Glucose 110 mg/dL (80-110); HEMOLYSIS 26 (0-50); Sodium 137 mmol/L (137-145)
[2023-07-02] MEDS: OXYCODONE IR 5 MG TABLET PO (21:10)
[2023-07-03] VITALS (10 sets, daily range): BP systolic 97–105; BP diastolic 62–70; PULSE 91–106; RESP 16–24; TEMP 36.5–36.7; O2SAT 92–97
--- NOTE | 2023-07-03 | DI.CT.S_ITS ---
PROCEDURE: CT ANGIO CHEST PE PROTOCOL INDICATIONS: SHORTNESS OF BREATH TECHNIQUE: After the administration of intravenous contrast, 2 mm thick sections acquired from the pulmonary apices to the posterior costophrenic angles. 3-dimensional maximum intensity projection (MIP) coronal and sagittal reformats were then acquired through the thorax. For radiation dose reduction, the following was used: automated exposure control, adjustment of mA and/or kV according to patient size. COMPARISON: [facility], CR, XR CHEST 1V, 07/03/2023, 12:48. [facility], CT, CT ABDOMEN PELVIS W CON, 07/03/2023, 14:05. FINDINGS: Image quality: Excellent. Pulmonary arteries: Pulmonary arteries are normal in size, and demonstrate no intraluminal filling defects to suggest central pulmonary embolism. Lungs and pleura: Dependent atelectasis is seen. No pleural effusions or pneumothorax. Central and peripheral airways are patent. Mediastinum: At least moderate coronary artery calcification is seen. Heart size is normal, without pericardial effusion. No mediastinal or hilar adenopathy. Thoracic aorta is normal in caliber and enhancement. Esophagus is normal in caliber. There is a small hiatal hernia. Bones and chest wall: No suspicious bony lesions. Ribs and thoracic spine appear intact throughout. Age-appropriate bony degenerative changes are seen. Thyroid gland demonstrates no significant abnormality. No axillary or supraclavicular adenopathy. Abdomen: Cholecystectomy clips are seen. Visualized upper abdominal solid organs appear normal in the early arterial phase of enhancement. IMPRESSION: Negative for pulmonary embolism. Dependent atelectasis. Additional findings: At least moderate coronary artery calcification Small hiatal hernia Cholecystectomy Dictated by: Jorge Mar M.D. on 07/03/2023 at 13:32 Approved by: Jorge Mar M.D. on 07/03/2023 at 13:34
[2023-07-03] MEDS: ACETAMINOPHEN 325 MG TABLET 650 MG PO ×4 (00:30→20:44)
--- NOTE | 2023-07-03 08:48 | P.PN_ITS ---
Subjective Subjective Interval history: Patient doing well. No complaints. BG are in good range. Exam Vital Signs (past 8 hours): - 07/03/23 03:59 07/03/23 05:30 Temperature 97.7 F Pulse Rate 106 H Respiratory Rate 16 Blood Pressure 105/70 Pulse Oximetry 96 96 Oxygen Delivery Method Nasal Cannula Oxygen Flow Rate 2 2 Oxygen Delivery Method Nasal Cannula Oxygen Flow Rate 2 Narrative Exam Narrative: General:? Patient is well developed and well nourished, in no distress at this time. HEENT:? Normocephalic, atraumatic, extraocular muscles intact, oral pharynx is clear and mucous membranes are moist. Neck: supple and symmetric, trachea is midline, no cervical adenopathy. Chest:? Normal AP diameter and contour without kyphoscoliosis, no tachypnea, equal chest rise bilaterally. Lungs:? CTA b/l no wheezing rhonchi or rales. Cardio:?RRR no m/r/g. Abdomen: Soft, tender RUQ without guarding, no distension Musculoskeletal:? Muscle strength and tone are equal within normal limits, no deformity. Extremities: No edema or joint effusions. No cyanosis or clubbing. Skin:? Pale,? Warm to touch,dry and intact without rashes, ulcerations or petechiae.? Neuro:? Alert and orientated x3,? sensation to touch intact in all extremities, no gross deficits noted of cranial nerves. Psych:? Patient has a well-kept appearance, appropriate affect, mental status attitude thought context and judgment are appropriate for age. Objective Labs 07/02/23 04:25 07/02/23 15:42 Labs: Laboratory Results - last 24 hr 07/02/23 07/02/23 15:42 Unknown Sodium 137 Cancelled Potassium 4.0 Cancelled Chloride 104 Cancelled Carbon Dioxide 24 Cancelled BUN 11 Cancelled Creatinine 0.68 Cancelled Estimated GFR > 60 Cancelled BUN/Creatinine Ratio 16.2 Cancelled Glucose 110 D Cancelled Calcium 8.5 Cancelled [facility] Medical History (Updated 07/02/23 @ 11:50 by Adrian Lee DO) CAD (coronary artery disease) Hypertension Diabetes Social History household members: spouse and children Smoking Status: Never smoker alcohol intake: former substance use type: does not use Assessment & Plan Assessment & Plan narrative: 1. Acute cholecystitis - elevated lactate on admit, improved with fluids. This is likely in setting of infection combined with metformin use. - continue zosyn - recheck BMP after insulin to see that bicarb is improving. While on Jardiance there is a risk of euglycemic DKA - findings on imaging raise the possibility of choledocholithiasis, though labs not consistent with this, continue to monitor. 2. Type 2 diabetes, possible mild DKA vs lactic acidosis, with concommitant respiratory alkalosis - recheck BMP in a few hours after insulin. Labs could be consistent with mild / borderline DKA but should improve with insulin administration subcutaneously. - ordered half home dosing of lantus this AM, along with sliding scale. - also on Jardiance increases risk of euglycemic dka, glucose levels near 240 on admission. - ketones 0.64 - could also be lactic acidosis given presentation with above cholecystitis. - hold Jardiance for now. - hold metformin until a few days after surgery. - BG and BMP WNL after surgery, can resume home DM2 meds 3. CAD - continue home asa 81 mg daily, atorvastatin 80. - He appears medically optimized from a cardiac standpoint prior to surgery, though diabetes you recommend repeat BMP as noted above. 4. HTN - consider holding home BP medications depending on blood pressures moving forward, too early to tell so will hold for now and restart if BP elevated. Hold losartan prior to surgery due to risk of intraoperative hypotension. 5. Acute respiratory failure with hypoxia, resolved. Possible sepsis. - suspect some atelectasis combined with diabetes, O2 saturations of 88% on room air in the ER. Possible sepsis though SOFA score 1. Code: Full, surrogate is patient's spouse I have utilized all available immediate resources to obtain, update, or review the patient's current medications. Medicine will sign off today. Thank you for allowing us to participate in the care of this patient. Should you have any further questions, do not hesitate to speak with us directly or call us.
[2023-07-03] MEDS: GABAPENTIN 300 MG CAPSULE PO ×3 (09:09→20:44)
[2023-07-03] MEDS: ATORVASTATIN 20 MG TABLET 80 MG PO (09:09)
[2023-07-03] MEDS: METFORMIN HCL 500 MG TABLET 1000 MG PO (09:09)
[2023-07-03] MEDS: ESCITALOPRAM 10 MG TABLET 20 MG PO (09:09)
[2023-07-03] MEDS: ASPIRIN EC 81 MG TABLET PO (09:09)
[2023-07-03] MEDS: METOPROLOL ER 50 MG TABLET PO (09:10)
[2023-07-03] MEDS: INSULIN GLARGINE 100 UNIT/ML 3ML PEN 15 UNIT SUBCUT (09:12)
--- NOTE | 2023-07-03 11:40 | CM.DANOTE ---
DCP: Chart review for case, met with patient at bedside, they agree to case management assessment. Completed DCP assessment based on information available. Patient is a 68 year old patient admitted for cholecystitis, SP lap choli now. 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 [facility] Renu specialty MD's. Payer: [facility] DME: None DCP: Home with supportive family when medically cleared. Cori Cota RN, CM Discharge Planning/Care Management CM Discharge Assessment Start: 07/03/23 11:39 Freq: Status: Active Protocol: Document 07/03/23 11:39 BQ (Rec: 07/03/23 11:40 BQ [id number]) Discharge Planning Assessment Assigned Java Portal Developer Cori Cota RN, CM Advance Directives? No History Provided By Patient Has Patient been admitted in last 30 No days? Prior Living Arrangements House Household Members spouse,children Type of transporation used prior to Drives own vehicle admit Independent with ADL's Yes Is patient alert and oriented? Yes Caregiver for Another No Barriers to Discharge No Referrals Initiated None needed Whiteboard Updated in Patient Room with Yes name and ext. # of Java Portal Developer Review Status In Process Next Review Type Continued Stay Review
--- NOTE | 2023-07-03 12:22 | PM.DS.1 ---
History of Present Illness History of Present Illness Chief complaint: food posioning Discharge Providers Provider Date of admission: 07/02/23 06:41 Discharge Date: 07/03/23 Discharge provider: Xavier Cash MD Summary Hospital Course Discharge Diagnosis: Acute cholecystitis Hospital Course: Mr. Holbrook had a laparoscopic cholecystectomy by Dr. Paul on 07/04/23. His blood sugar was managed medically by the hospitalist service. By the next day he was tolerating a diet with good pain control and good glucose control. He was discharged home. Exam Vital Signs (past 8 hours): - 07/03/23 05:30 Temperature 97.7 F Pulse Rate 106 H Respiratory Rate 16 Blood Pressure 105/70 Pulse Oximetry 96 Oxygen Flow Rate 2 Oxygen Delivery Method Nasal Cannula Oxygen Flow Rate 2 Objective Labs 07/02/23 04:25 07/02/23 15:42 Labs: Laboratory Results - last 24 hr 07/02/23 07/02/23 15:42 Unknown Sodium 137 Cancelled Potassium 4.0 Cancelled Chloride 104 Cancelled Carbon Dioxide 24 Cancelled BUN 11 Cancelled Creatinine 0.68 Cancelled Estimated GFR > 60 Cancelled BUN/Creatinine Ratio 16.2 Cancelled Glucose 110 D Cancelled Calcium 8.5 Cancelled PFSH Medical History (Updated 07/02/23 @ 11:50 by Adrian Lee DO) CAD (coronary artery disease) Hypertension Diabetes Social History household members: spouse and children Smoking Status: Never smoker alcohol intake: former substance use type: does not use Discharge Plan Discharge Plan Patient Disposition: Home Provider Discharge Comment: [facility] at [phone] to schedule a follow up appointment. Discharge orders & Medications Prescriptions: New hydrocodone-acetaminophen 5-325 mg tablet 1 tab PO Q8H PRN (Reason: pain) Qty: 10 0RF Continued Aspir-81 81 mg PO DAILY amlodipine 10 mg PO DAILY atorvastatin 80 mg PO DAILY empagliflozin 25 mg PO DAILY escitalopram oxalate 20 mg PO DAILY insulin glargine 30 units SUBCUT ONCE HS losartan 100 mg PO DAILY metformin 1,000 mg PO DAILY metoprolol succinate 50 mg PO DAILY Visit Report/Discharge Packet Stand Alone Forms: Patient Portal/API, Stroke Signs & Symptoms, Work Release Note
--- NOTE | 2023-07-03 12:38 | DI.RAD.S_ITS ---
PROCEDURE: XR CHEST 1V INDICATIONS: hypoxia, on 2L TECHNIQUE: One view of the chest was acquired. COMPARISON: [facility], CR, CHEST 1VW (PORTABLE), 12/07/2014, 15:39. [facility], CR, XR CHEST 1 VIEW, 07/15/2018, 11:04. [facility], CR, XR ACUTE ABDOMEN SERIES, 07/02/2023, 4:18. FINDINGS: Surgical changes and devices: Cholecystectomy clips are seen. Lungs and pleura: Low lung volumes are noted. This causes a crowded appearance to the lung markings and limits evaluation. Likely streaky atelectasis can be seen at the right lung base. No pneumothorax or large pleural effusion can be seen. Mediastinum: Mediastinal contours appear normal. Heart size is mildly enlarged. Bones and chest wall: No suspicious bony lesions. Age-appropriate bony degenerative changes are seen. Overlying soft tissues appear unremarkable. IMPRESSION: Low lung volumes, without an acute pulmonary abnormality seen by plain film. Mild cardiomegaly. Postoperative and degenerative changes are seen. Dictated by: Jorge Mar M.D. on 07/03/2023 at 12:02 Approved by: Jorge Mar M.D. on 07/03/2023 at 12:05
[2023-07-03] MEDS: IBUPROFEN 600 MG TABLET PO (13:13)
--- NOTE | 2023-07-03 13:36 | DI.CT.S_ITS ---
PROCEDURE: CT ABDOMEN PELVIS W CON INDICATIONS: Please evaluate for PE, SBO vs possible ileus TECHNIQUE: After the administration of oral and IV contrast, axial sections were acquired from the lung bases to the pubic symphysis. Coronal and sagittal reformats were performed. For radiation dose reduction, the following was used: automated exposure control, adjustment of mA and/or kV according to patient size. COMPARISON: [facility], US, US ABDOMEN LIMITED, 07/02/2023, 6:03. [facility], CR, XR CHEST 1V, 07/03/2023, 12:48. [facility], CT, CT ANGIO CHEST PE PROTOCOL, 07/03/2023, 14:05. [facility], CT, CT ABDOMEN PELVIS W CON, 07/02/2023, 4:53. FINDINGS: Image quality: Excellent. Lung bases: There is dependent atelectasis. A small hiatal hernia is incidentally noted. Heart: At least moderate coronary artery calcification is seen. ABDOMEN: Liver: Unremarkable. Gallbladder: Removed. Biliary ducts: The common bile duct is again noted to be prominent at 1.3 cm Pancreas: Unremarkable. Spleen: Unremarkable. Adrenal Glands: Unremarkable. Kidneys and Ureters: There is a nonobstructing left-sided kidney stone, as on series 2, image 38 measuring 4 mm. Numerous simple appearing bilateral renal cysts are seen. The kidneys demonstrate normal size and enhance symmetrically. There is no hydronephrosis. Stomach and Bowel: In this patient with this given history, scrutiny is given to the small bowel. No dilated loops of small bowel are seen. A normal appendix is noted. No significant colonic abnormality is seen. Peritoneum: No abnormal intraperitoneal fluid. No free air. Ventral Wall: No hernia. Periumbilical inflammatory change can be seen, with soft tissue gas. Abdominal Nodes: No retroperitoneal or mesenteric adenopathy by size criteria. Vessels: Aorta and inferior vena cava are normal in size. PELVIS: Pelvic Organs: Unremarkable. Bladder: Unremarkable. Pelvic Nodes: No enlarged lymph nodes. Miscellaneous: There is a fat containing right inguinal hernia. Bones: There is minimal grade 1 L5-S1 anterolisthesis, with associated bilateral L5 pars defects. IMPRESSION: Negative for small bowel obstruction. Normal appendix. Periumbilical inflammatory change can be seen, with soft tissue gas. Please correlate with interval surgical history. Cholecystectomy, with biliary prominence again seen, 1.3 cm. Additional findings: At least moderate coronary artery calcification Small hiatal hernia Nonobstructing left-sided kidney stone, 4 mm Simple bilateral renal cysts Bilateral L5 pars defects, with minimal grade 1 L5-S1 anterolisthesis Dictated by: Jorge Mar M.D. on 07/03/2023 at 13:24 Approved by: Jorge Mar M.D. on 07/03/2023 at 13:31
[2023-07-04] VITALS (8 sets, daily range): BP systolic 117–184; BP diastolic 75–80; PULSE 73–125; RESP 18–22; TEMP 36.7–37.5; O2SAT 92–95
--- NOTE | 2023-07-04 04:39 | PC.NURSE ---
Addendum entered by Colleen Mora R.N. 07/04/23 06:53: Patient's HR sustaining at 120's at rest despite Metoprolol given @ 0600. Denies SOB, pain. Patient is AxOx4, talking in complete sentences. O2 sats 93% on 1.5L NC. Addendum entered by Colleen Mora R.N. 07/04/23 05:59: 0550 update: Patient's HR sustaining at 120's, morning Metoprolol given early. O2 sats are 88% on RA, placed back on 1.5 L NC, O2 sats back up to 93%. Original Note: night shift manager: Patient OOB SBA to the bathroom, HR increased to 120's when OOB moving, HR sits primarily in the 100-110's at rest. On tele showing sinus tachycardia. O2 sats @ 92% on RA, requires cueing to take deep breaths and use of IS. Able to use IS up to 500 mL. No coughing, lungs sounds are clear on auscultation. Denies pain.
[2023-07-04] MEDS: METOPROLOL ER 50 MG TABLET PO (05:57)
[2023-07-04] MEDS: ACETAMINOPHEN 325 MG TABLET 650 MG PO (05:58)
--- NOTE | 2023-07-04 08:09 | PC.NURSE ---
Addendum entered by Chiquita Mulligan R.N. 07/04/23 14:48: Patient just discharged to home, oxygen brought with patient and set at two liters. He will have oxygen at home when he arrives. Oxygen was from this hospital. Paperwork all done and patient taken out by this RN Original Note: Patients blood sugar this morning 94. He will get his lantus insulin with breakfast and he remains on 1.5L of oxygen and sats at 94%. Patient has small incisions from lap serenity covered with ss and gauze. BS cta, and heart rate regular. Patient just up to use the bathroom. He voided and is now back in bed with his scds on. Ate well at breakfast.
[2023-07-04] MEDS: INSULIN GLARGINE 100 UNIT/ML 3ML PEN 15 UNIT SUBCUT (08:32)
[2023-07-04] MEDS: ESCITALOPRAM 10 MG TABLET 20 MG PO (08:33)
[2023-07-04] MEDS: ASPIRIN EC 81 MG TABLET PO (08:33)
[2023-07-04] MEDS: ATORVASTATIN 20 MG TABLET 80 MG PO (08:33)
[2023-07-04] MEDS: GABAPENTIN 300 MG CAPSULE PO (08:34)
[2023-07-04] MEDS: LOSARTAN 50 MG TABLET 100 MG PO (08:34)
[2023-07-04] MEDS: AMLODIPINE 5 MG TABLET 10 MG PO (08:34)
[2023-07-04] MEDS: METFORMIN HCL 500 MG TABLET 1000 MG PO (08:34)
[2023-07-04 08:39] LABS: Add Manual Diff / Slide Review NO; Basophils Absolute Auto 100 /uL (0-100); Basophils Percent Auto 0.9 % (0-2); Eosinophils Absolute Auto 100 /uL (0-450); Eosinophils Percent Auto 0.6 % (2-4); Hematocrit 40.9 % (41-53); Hemoglobin 13.7 g/dL (13.5-17.5); Lymphocytes Absolute Auto 1300 /uL (1100-4500); Lymphocytes Percent Auto 11.4 % (25-40); Mean Corpuscular HGB Conc 33.4 % (30-36); Mean Corpuscular Hemoglobin 29.8 PG (26-34); Mean Corpuscular Volume 89.4 fL (80-100); Monocytes Absolute Auto 600 /uL (0-900); Neutrophils Absolute Auto 9600 /uL (1500-7000); Neutrophils Percent Auto 82.1 % (50-75); Platelet Count 197 X10^3/uL (150-400); Red Blood Cell Count 4.58 X10^6/uL (4.5-5.9); Red Cell Distribution Width 14.5 % (11.6-14.8); White Blood Cell Count 11.6 X10^3/uL (4.5-11.0)
[2023-07-04 08:55] LABS: Alanine Aminotransferase 56 IU/L (<50); Albumin 3.4 g/dL (3.5-5.0); Alkaline Phosphatase 53 U/L (38-126); Aspartate Aminotransferase 41 IU/L (17-59); BUN Creatinine Ratio 15.1 (6-22); Bilirubin Total 0.5 mg/dL (0.2-1.3); Blood Urea Nitrogen 13 mg/dL (9-20); Calcium 8.4 mg/dL (8.4-10.2); Carbon Dioxide 27 mmol/L (22-32); Chloride 105 mmol/L (98-107); Estimated Glomerular Filt Rate > 60 mL/min (>60); Globulin 3.4 g/dL (1.7-4.1); Glucose 145 mg/dL (80-110); HEMOLYSIS < 15 (0-50); Sodium 136 mmol/L (137-145); Total Protein 6.8 g/dL (6.3-8.2)
[2023-07-04 09:04] LABS: NT-proBNP (BNP-Adult 18+) 774 pg/mL (<125)
[2023-07-04] MEDS: FUROSEMIDE 40 MG/4 ML VIAL 20 MG IV (10:37)
[2023-07-04] MEDS: INSULIN LISPRO 100 UNIT/ML 3ML VIAL SUBCUT (12:00)
--- NOTE | 2023-07-04 12:54 | CM.DPC ---
DCP Discharge Home Per MD, placed order for RT to assess for new Home O2 and then pt likely will be stable for d/c home later today. Per RT, completed home O2 eval and setting up new home oxygen through [employer] and O2 tank ready but just confirming pt has steady heart rate. SW met bedside with pt and spouse and explained role and they confirm they are agreeable with discharge to home today with new home O2 and they have an upcoming already planned trip to see their son in [place] this week on Wednesday and are hopeful to still make that flight and RT discussed the small oxygen concentrator he can take on the flight. SW updated RN and they will confirm pt has steady heart rate for d/c to home today. Plan: Patient to d/c home today via spouse POV and new Home O2 set up as long as his heart rate is steady and stable. KATHY Maria
--- NOTE | 2023-07-04 13:00 | P.DS_ITS ---
History of Present Illness History of Present Illness Chief complaint: food posioning Narrative: 68 M with PMH of CAD with 2 prior stents, IDDM (type 2), HTN who presented with abdominal pain, nausea and vomiting that started yesterday evening. He was found to have acute cholecystitis after initial evaluation and admitted to the general surgery service. He feels improved but pain 6/10 currently. He is receiving fluids and antibiotics. He had an elevated lactate which improved to normal with fluid. He had a metabolic acidosis with respiratory alkalosis based on biarb of 17 and VBG with pH of 7.6 and PCO2 of 19. Mg was 1.5. He is on zosyn and fluids. EKG shows NSR with no acute ischemia and he denies chest pain. He had a reported episodes of NSVT in the emergency room and was given a dose of metoprolol. He had not been given any insulin since arrival. Upon review, slight worsening of his bicarb and elevated gap, I ordered him for about half of his home dosing of lantus along with a sliding scale. Repeat labs ordered for later in the morning prior to surgery to make sure no development of DKA. Discharge Providers Provider Date of admission: 07/02/23 06:41 Discharge Date: 07/04/23 Discharge provider: Rene Pena DO Summary Hospital Course Discharge Diagnosis: Acute cholecystitis Hospital Course: Mr. Holbrook had a laparoscopic cholecystectomy by Dr. Paul on 07/04/23. His blood sugar was managed medically by the hospitalist service. By the next day he was tolerating a diet with good pain control and good glucose control. He was requiring supplemental O2 postop, scans only showed atelectasis and low lung volumes. He was discharged home with home O2 at 2L at rest and 3L with exertion per RT eval. Exam Vital Signs (past 8 hours): - 07/04/23 05:55 07/04/23 05:57 07/04/23 06:52 Temperature Pulse Rate 121 H 121 H 125 H Respiratory Rate Blood Pressure 126/77 126/77 Pulse Oximetry 93 Oxygen Delivery Method Oxygen Flow Rate 1.5 07/04/23 08:00 07/04/23 08:28 07/04/23 12:00 Temperature 99.5 F 98.2 F Pulse Rate 92 H 73 Respiratory Rate 18 18 Blood Pressure 117/75 184/80 H Pulse Oximetry 94 95 92 Oxygen Delivery Method Nasal Cannula Oxygen Flow Rate 1.5 1.5 0 Fraction of Inspired Oxygen 3 Oxygen Delivery Method Nasal Cannula Oxygen Flow Rate 0 Narrative Exam Narrative: General:? Patient is well developed and well nourished, in no distress at this time. HEENT:? Normocephalic, atraumatic, extraocular muscles intact, oral pharynx is clear and mucous membranes are moist. Neck: supple and symmetric, trachea is midline, no cervical adenopathy. Chest:? Normal AP diameter and contour without kyphoscoliosis, no tachypnea, equal chest rise bilaterally. Lungs:? CTA b/l no wheezing rhonchi or rales. Cardio:?RRR no m/r/g. Abdomen: Soft, tender RUQ without guarding, no distension Musculoskeletal:? Muscle strength and tone are equal within normal limits, no deformity. Extremities: No edema or joint effusions. No cyanosis or clubbing. Skin:? Pale,? Warm to touch,dry and intact without rashes, ulcerations or petechiae.? Neuro:? Alert and orientated x3,? sensation to touch intact in all extremities, no gross deficits noted of cranial nerves. Psych:? Patient has a well-kept appearance, appropriate affect, mental status attitude thought context and judgment are appropriate for age. Objective Labs 07/04/23 08:30 07/04/23 08:30 Labs: Laboratory Results - last 24 hr 07/04/23 08:30 WBC 11.6 H RBC 4.58 Hgb 13.7 Hct 40.9 L MCV 89.4 MCH 29.8 MCHC 33.4 RDW 14.5 Plt Count 197 Neut % (Auto) 82.1 H Lymph % (Auto) 11.4 L [place] % (Auto) 5.0 Eos % (Auto) 0.6 L Baso % (Auto) 0.9 Neut # (Auto) 9600 H Lymph # (Auto) 1300 [place] # (Auto) 600 Eos # (Auto) 100 Baso # (Auto) 100 Sodium 136 L Potassium 4.0 Chloride 105 Carbon Dioxide 27 BUN 13 Creatinine 0.86 Estimated GFR > 60 BUN/Creatinine Ratio 15.1 Glucose 145 H Calcium 8.4 Total Bilirubin 0.5 AST 41 ALT 56 H Alkaline Phosphatase 53 NT-Pro-B Natriuret Pep 774 H Total Protein 6.8 Albumin 3.4 L Globulin 3.4 Albumin/Globulin Ratio 1.0 PFSH Medical History (Updated 07/02/23 @ 11:50 by Adrian Lee DO) CAD (coronary artery disease) Hypertension Diabetes Social History household members: spouse and children Smoking Status: Never smoker alcohol intake: former substance use type: does not use Discharge Plan Discharge Plan Patient Disposition: Home Provider Discharge Comment: Contact [facility] at [phone] to schedule a follow up appointment. Discharge orders & Medications Prescriptions: New hydrocodone-acetaminophen 5-325 mg tablet 1 tab PO Q8H PRN (Reason: pain) Qty: 10 0RF Continued Aspir-81 81 mg PO DAILY amlodipine 10 mg PO DAILY atorvastatin 80 mg PO DAILY empagliflozin 25 mg PO DAILY escitalopram oxalate 20 mg PO DAILY insulin glargine 30 units SUBCUT ONCE HS losartan 100 mg PO DAILY metformin 1,000 mg PO DAILY metoprolol succinate 50 mg PO DAILY Visit Report/Discharge Packet Stand Alone Forms: Patient Portal/API, Stroke Signs & Symptoms, Work Release Note
== END 2023-07-04 14:30 | disposition home or self-care (01) | DRG 417 ==
LOC: ED 06:41 → AC 06:42
PROVIDERS: Internal Medicine; Student in an Organized Health Care Education/Training Program; Surgery; Admitting Provider Surgery; Emergency Provider Emergency Medicine; Referring Provider Emergency Medicine; Visit Provider Surgery
PROC: 0FT44ZZ Resection of Gallbladder, Percutaneous Endoscopic Approach (ICD-10-PCS; CPT 47562; principal; 2023-07-02 12:30)
DX: K81.0 Acute cholecystitis (principal); E11.10 Type 2 diabetes mellitus with ketoacidosis without coma; J96.01 Acute respiratory failure with hypoxia; E87.3 Alkalosis; I25.10 Atherosclerotic heart disease of native coronary artery without angina pectoris; I10 Essential (primary) hypertension; Z95.5 Presence of coronary angioplasty implant and graft; Z79.84 Long term (current) use of oral hypoglycemic drugs; Z79.4 Long term (current) use of insulin
CPT/HCPCS: 36415; 47562; 71045; 71275; 74022; 74177; 76705; 80048; 80053; 81003; 81015; 82009; 82805; 82962; 83605; 83735; 83880; 85007; 85025; 93005; 94618; 94760; 96365; 96366; 96368; 96375; 96376; 99285; C9113; J0171; J1170; J1940; J2405; J2543; J2765; J3010; J3475; Q9967

== ENCOUNTER 2024-07-30 05:24 | Emergency (ER) | payer MEDICARE, OTHER, SELFPAY ==
[2023-07-02 09:43] VITALS: BMI 27.4
[2024-07-30] VITALS (22 sets, daily range): BP systolic 82–157; BP diastolic 48–85; PULSE 107–140; RESP 15–33; TEMP 36.9–37.1; O2SAT 90–99; BMI 28.7
--- NOTE | 2024-07-30 05:38 | ED_ITS ---
HPI - Abdominal Pain <Tra Macias MD - Last Filed: 07/30/24 16:10> General Chief Complaint: Abdominal Pain Stated Complaint: abd pain t-2 Time Seen by Provider: 07/30/24 05:38 Source: patient and family Mode of arrival: Ambulatory History of Present Illness HPI narrative: 69-year-old male with history of cholecystectomy last year, history of stomach ulcers, not taking any oral antacids complains of 2 days duration epigastric pain, has had half dozen episodes nonbloody emesis. Denies diarrhea, black or red stools. Denies prior pancreas problems, denies history of pancreatitis. Denies injury, trauma, new activities. Denies cough shortness of breath chest pain. Denies flank pain, dysuria, frequency of urination, dark or bloody looking urine. Related Data Home Medications Medication Instructions Recorded Confirmed Aspir-81 81 mg PO DAILY 07/02/23 08/02/23 amlodipine 10 mg PO DAILY 07/02/23 08/02/23 atorvastatin 80 mg PO DAILY 07/02/23 08/02/23 empagliflozin 25 mg PO DAILY 07/02/23 08/02/23 escitalopram oxalate 20 mg PO DAILY 07/02/23 08/02/23 insulin glargine 30 units SUBCUT ONCE HS 07/02/23 08/02/23 losartan 100 mg PO DAILY 07/02/23 08/02/23 metformin 1,000 mg PO DAILY 07/02/23 08/02/23 metoprolol succinate 50 mg PO DAILY 07/02/23 08/02/23 Allergies Allergy/AdvReac Type Severity Reaction Status Date / Time No Known Drug Allergies Allergy Verified 08/02/23 09:57 Review of Systems <Tra Macias MD - Last Filed: 07/30/24 16:10> Review of Systems Narrative: See HPI Patient History <Tra Macias MD - Last Filed: 07/30/24 16:10> Medical History CAD (coronary artery disease) Hypertension Diabetes Surgical History Hx laparoscopic cholecystectomy Social History household members: spouse and children Smoking Status: Never smoker alcohol intake: former substance use type: does not use Smoking Status: Never smoker Substance Use Type: does not use Exam <Tra Macias MD - Last Filed: 07/30/24 16:10> Narrative Exam Narrative: GENERAL: Well-developed patient, in mild distress. HEAD: Atraumatic. Normocephalic. EYES: Pupils equal round and reactive. Extraocular motions intact. No scleral icterus. No injection or drainage. ENT: Nose without bleeding, purulent drainage. Throat without erythema, tonsillar hypertrophy or exudate. Airway patent. NECK: Trachea midline. Non tender CARDIOVASCULAR: Regular rate and rhythm without murmurs, gallops, or rubs. RESPIRATORY: Clear to auscultation. Breath sounds equal bilaterally. No wheezes, rales, or rhonchi. GASTROINTESTINAL: Abdomen soft, non-tender, nondistended. EXTREMITIES: No edema or joint tenderness. BACK: Nontender without deformity or crepitance. No flank tenderness. NEURO: AOx3. Motor functions grossly nonfocal SKIN: No rash or erythema of visible areas Initial Vital Signs Initial Vital Signs: Vital Signs Temperature 98.5 F 07/30/24 05:28 Pulse Rate 140 H 07/30/24 05:28 Respiratory Rate 18 07/30/24 05:28 Blood Pressure 116/70 07/30/24 05:28 Pulse Oximetry 99 07/30/24 05:28 Oxygen Delivery Method Room Air 07/30/24 05:28 <Lana Jimenez DO - Last Filed: 07/30/24 15:58> Initial Vital Signs Initial Vital Signs: Vital Signs Temperature 98.5 F 07/30/24 05:28 Pulse Rate 140 H 07/30/24 05:28 Respiratory Rate 18 07/30/24 05:28 Blood Pressure 116/70 07/30/24 05:28 Pulse Oximetry 99 07/30/24 05:28 Oxygen Delivery Method Room Air 07/30/24 05:28 Procedures <Lana Jimenez DO - Last Filed: 07/30/24 15:58> Central Line Placement Right IJ: Patient Placed on Monitor/Pulse Ox: Yes Prep: mask, gown and gloves Central Line Prep: Chlorhexidine scrub and sterile drapes applied Local Anesthetic: lidocaine 1% Amount of anesthesia used (mL): 4 Ultrasound Used for Placement: Yes Central Line Lumen Inserted: triple Post Procedure: good blood return, all ports aspirated, flushed, capped, sterile dressing applied and line stabilization device Post Procedure X-Ray: tip of catheter in good position and no pneumothorax seen Patient Tolerated Procedure: Well Complications: hematoma at puncture site and arterial puncture/cannulation (puncture, no cannulation) Course <Tra Macias MD - Last Filed: 07/30/24 16:10> Orders Ordered: ED Orders 07/30/24 10:51 XR chest 1V Stat Discontinued Medications Famotidine (Famotidine 20 Mg/2 Ml Vial) 20 mg IV NOW [facility] Last Admin: 07/30/24 05:45 Dose: 20 mg Documented By: AB Sodium Chloride (Normal Saline 0.9%) 1,000 mls @ 1,000 mls/hr IV BOLUS ONE Stop: 07/30/24 06:50 Last Infusion: 07/30/24 06:30 Dose: Infused Documented By: Admin: 07/30/24 05:54 Dose: 1,000 mls/hr Documented By: Piperacillin Sod/Tazobactam (Sod 4.5 gm/ Sodium Chloride) 100 mls @ 200 mls/hr IV NOW ONE Stop: 07/30/24 06:20 Last Infusion: 07/30/24 08:14 Dose: Infused Documented By: Admin: 07/30/24 06:58 Dose: 200 mls/hr Documented By: Sodium Chloride (Normal Saline 0.9%) 1,000 mls @ 1,000 mls/hr IV BOLUS ONE Stop: 07/30/24 07:39 Last Admin: 07/30/24 10:19 Dose: Not Given Documented By: SHELBY Sodium Chloride (Normal Saline 0.9%) 1,638 mls @ 546 mls/hr 30 ml/kg infuse over 3 hr (1638 ml) IV NOW ONE Stop: 07/30/24 09:49 Last Infusion: 07/30/24 08:13 Dose: Infused Documented By: Admin: 07/30/24 07:00 Dose: 546 mls/hr Documented By: Sodium Chloride (Normal Saline 0.9%) 1,000 mls @ 100 mls/hr IV CONT [facility] Last Admin: 07/30/24 08:44 Dose: 100 mls/hr Documented By: JG Sodium Chloride (Normal Saline 0.9%) 500 mls @ 1,000 mls/hr IV BOLUS PRN PRN Reason: Fluid replacement Last Infusion: 07/30/24 09:15 Dose: Infused Documented By: Admin: 07/30/24 08:45 Dose: 1,000 mls/hr Documented By: SHELBY NOREPINEPHRINE BITARTRATE/D5W (Levophed) 4 mg in 250 mls @ 26.705 mls/hr IV TITRATE RAHEEM; Protocol Last Titration: 07/30/24 09:34 Dose: 0.15 mcg/kg/min, 40.058 mls/hr Documented By: Admin: 07/30/24 09:10 Dose: 0.2 mcg/kg/min, 53.411 mls/hr Documented By: SHELBY Morphine Sulfate (Morphine 4 Mg/Ml Inj) 4 mg IV NOW ONE Stop: 07/30/24 05:51 Last Admin: 07/30/24 05:53 Dose: 4 mg Documented By: Ondansetron HCl (Ondansetron 4 Mg/2 Ml Inj) 4 mg IV NOW ONE Stop: 07/30/24 05:51 Last Admin: 07/30/24 05:53 Dose: 4 mg Documented By: Vital Signs Vital signs: Vital Signs - 8 hr 07/30/24 08:30 07/30/24 08:30 07/30/24 08:32 Temperature Pulse Rate 114 H Respiratory Rate 21 Blood Pressure 83/53 L 82/48 L Pulse Oximetry 92 Oxygen Delivery Method Nasal Cannula Oxygen Flow Rate 2 07/30/24 08:32 07/30/24 09:00 07/30/24 09:00 Temperature Pulse Rate 115 H 114 H Respiratory Rate 22 19 Blood Pressure 83/52 L Pulse Oximetry 92 93 Oxygen Delivery Method Oxygen Flow Rate 07/30/24 09:15 07/30/24 09:15 07/30/24 09:29 Temperature 98.8 F Pulse Rate 109 H Respiratory Rate 19 Blood Pressure 110/67 Pulse Oximetry 96 Oxygen Delivery Method Nasal Cannula Oxygen Flow Rate 2 07/30/24 09:30 07/30/24 09:30 07/30/24 09:45 Temperature Pulse Rate 107 H Respiratory Rate 21 Blood Pressure 157/85 H 127/70 Pulse Oximetry 96 Oxygen Delivery Method Nasal Cannula Oxygen Flow Rate 2 07/30/24 09:45 07/30/24 10:00 07/30/24 10:11 Temperature Pulse Rate 113 H 109 H Respiratory Rate 20 24 Blood Pressure Pulse Oximetry 93 95 95 Oxygen Delivery Method Nasal Cannula Nasal Cannula Oxygen Flow Rate 1 1 07/30/24 10:12 07/30/24 10:12 07/30/24 10:15 Temperature Pulse Rate 110 H 109 H Respiratory Rate 28 H 26 H Blood Pressure 121/69 Pulse Oximetry 95 95 Oxygen Delivery Method Oxygen Flow Rate 07/30/24 10:15 07/30/24 10:30 07/30/24 10:30 Temperature Pulse Rate 114 H Respiratory Rate 28 H Blood Pressure 117/70 118/67 Pulse Oximetry 96 Oxygen Delivery Method Oxygen Flow Rate 07/30/24 10:45 07/30/24 10:45 07/30/24 11:00 Temperature Pulse Rate 112 H Respiratory Rate 32 H Blood Pressure 117/65 116/67 Pulse Oximetry 96 Oxygen Delivery Method Room Air Oxygen Flow Rate 1 07/30/24 11:00 Temperature Pulse Rate 112 H Respiratory Rate 15 Blood Pressure Pulse Oximetry 93 Oxygen Delivery Method Nasal Cannula Oxygen Flow Rate 1 <Lana Jimenez, DO - Last Filed: 07/30/24 15:58> Orders Ordered: ED Orders 07/30/24 10:51 XR chest 1V Stat Discontinued Medications Famotidine (Famotidine 20 Mg/2 Ml Vial) 20 mg IV NOW RAHEEM Last Admin: 07/30/24 05:45 Dose: 20 mg Documented By: AB Sodium Chloride (Normal Saline 0.9%) 1,000 mls @ 1,000 mls/hr IV BOLUS ONE Stop: 07/30/24 06:50 Last Infusion: 07/30/24 06:30 Dose: Infused Documented By: Admin: 07/30/24 05:54 Dose: 1,000 mls/hr Documented By: AB Piperacillin Sod/Tazobactam (Sod 4.5 gm/ Sodium Chloride) 100 mls @ 200 mls/hr IV NOW ONE Stop: 07/30/24 06:20 Last Infusion: 07/30/24 08:14 Dose: Infused Documented By: Admin: 07/30/24 06:58 Dose: 200 mls/hr Documented By: AB Sodium Chloride (Normal Saline 0.9%) 1,000 mls @ 1,000 mls/hr IV BOLUS ONE Stop: 07/30/24 07:39 Last Admin: 07/30/24 10:19 Dose: Not Given Documented By: SHELBY Sodium Chloride (Normal Saline 0.9%) 1,638 mls @ 546 mls/hr 30 ml/kg infuse over 3 hr (1638 ml) IV NOW ONE Stop: 07/30/24 09:49 Last Infusion: 07/30/24 08:13 Dose: Infused Documented By: Admin: 07/30/24 07:00 Dose: 546 mls/hr Documented By: Sodium Chloride (Normal Saline 0.9%) 1,000 mls @ 100 mls/hr IV CONT RAHEEM Last Admin: 07/30/24 08:44 Dose: 100 mls/hr Documented By: SHELBY Sodium Chloride (Normal Saline 0.9%) 500 mls @ 1,000 mls/hr IV BOLUS PRN PRN Reason: Fluid replacement Last Infusion: 07/30/24 09:15 Dose: Infused Documented By: Admin: 07/30/24 08:45 Dose: 1,000 mls/hr Documented By: SHELBY NOREPINEPHRINE BITARTRATE/D5W (Levophed) 4 mg in 250 mls @ 26.705 mls/hr IV TITRATE [facility]; Protocol Last Titration: 07/30/24 09:34 Dose: 0.15 mcg/kg/min, 40.058 mls/hr Documented By: Admin: 07/30/24 09:10 Dose: 0.2 mcg/kg/min, 53.411 mls/hr Documented By: SHELBY Morphine Sulfate (Morphine 4 Mg/Ml Inj) 4 mg IV NOW ONE Stop: 07/30/24 05:51 Last Admin: 07/30/24 05:53 Dose: 4 mg Documented By: Ondansetron HCl (Ondansetron 4 Mg/2 Ml Inj) 4 mg IV NOW ONE Stop: 07/30/24 05:51 Last Admin: 07/30/24 05:53 Dose: 4 mg Documented By: Vital Signs Vital signs: Vital Signs - 8 hr 07/30/24 08:30 07/30/24 08:30 07/30/24 08:32 Temperature Pulse Rate 114 H Respiratory Rate 21 Blood Pressure 83/53 L 82/48 L Pulse Oximetry 92 Oxygen Delivery Method Nasal Cannula Oxygen Flow Rate 2 07/30/24 08:32 07/30/24 09:00 07/30/24 09:00 Temperature Pulse Rate 115 H 114 H Respiratory Rate 22 19 Blood Pressure 83/52 L Pulse Oximetry 92 93 Oxygen Delivery Method Oxygen Flow Rate 07/30/24 09:15 07/30/24 09:15 07/30/24 09:29 Temperature 98.8 F Pulse Rate 109 H Respiratory Rate 19 Blood Pressure 110/67 Pulse Oximetry 96 Oxygen Delivery Method Nasal Cannula Oxygen Flow Rate 2 07/30/24 09:30 07/30/24 09:30 07/30/24 09:45 Temperature Pulse Rate 107 H Respiratory Rate 21 Blood Pressure 157/85 H 127/70 Pulse Oximetry 96 Oxygen Delivery Method Nasal Cannula Oxygen Flow Rate 2 07/30/24 09:45 07/30/24 10:00 07/30/24 10:11 Temperature Pulse Rate 113 H 109 H Respiratory Rate 20 24 Blood Pressure Pulse Oximetry 93 95 95 Oxygen Delivery Method Nasal Cannula Nasal Cannula Oxygen Flow Rate 1 1 07/30/24 10:12 07/30/24 10:12 07/30/24 10:15 Temperature Pulse Rate 110 H 109 H Respiratory Rate 28 H 26 H Blood Pressure 121/69 Pulse Oximetry 95 95 Oxygen Delivery Method Oxygen Flow Rate 07/30/24 10:15 07/30/24 10:30 07/30/24 10:30 Temperature Pulse Rate 114 H Respiratory Rate 28 H Blood Pressure 117/70 118/67 Pulse Oximetry 96 Oxygen Delivery Method Oxygen Flow Rate 07/30/24 10:45 07/30/24 10:45 07/30/24 11:00 Temperature Pulse Rate 112 H Respiratory Rate 32 H Blood Pressure 117/65 116/67 Pulse Oximetry 96 Oxygen Delivery Method Room Air Oxygen Flow Rate 1 07/30/24 11:00 Temperature Pulse Rate 112 H Respiratory Rate 15 Blood Pressure Pulse Oximetry 93 Oxygen Delivery Method Nasal Cannula Oxygen Flow Rate 1 MDM - Abdominal Pain <Tra Macias MD - Last Filed: 07/30/24 16:10> Lab Data Attestation: I reviewed the patient's lab results. Lab results narrative: White blood cell count 65943, hemoglobin 16.8, platelets 257,000. Electrolytes unremarkable, serum CO2 19 decreased, BUN 17 with creatinine 1.07, glucose 249. T bili 4.3,, transaminases elevated. Lipase normal. Lactate 5.4 elevated 11/03/24 05:40 07/30/24 05:40 Labs: Lab Results 07/30/24 07/30/24 Range/Units 05:40 07:54 WBC 13.9 H (4.5-11.0) X10^3/uL RBC 5.58 (4.5-5.9) X10^6/uL Hgb 16.8 (13.5-17.5) g/dL Hct 51.4 (41-53) % MCV 92.1 (80-100) fL MCH 30.1 (26-34) PG MCHC 32.7 (30-36) % RDW 14.6 (11.6-14.8) % Plt Count 257 (150-400) X10^3/uL Neut % (Auto) 97.7 H (50-75) % Lymph % (Auto) 1.5 L (25-40) % Rankin % (Auto) 0.4 L (3-14) % Eos % (Auto) 0.0 L (2-4) % Baso % (Auto) 0.4 (0-2) % Neut # (Auto) 96916 H (4681-5056) /uL Lymph # (Auto) 200 L (9223-6123) /uL Rankin # (Auto) 100 (0-900) /uL Eos # (Auto) 0 (0-450) /uL Baso # (Auto) 100 (0-100) /uL PT 13.2 H (9.4-12.5) SECONDS INR 1.2 (0.9-1.3) Sodium 138 (137-145) mmol/L Potassium 4.3 (3.4-5.1) mmol/L Chloride 99 (98-107) mmol/L Carbon Dioxide 19 L (22-32) mmol/L BUN 17 (9-20) mg/dL Creatinine 1.07 (0.66-1.25) mg/dL Estimated GFR > 60 (>60) mL/min BUN/Creatinine Ratio 15.9 (6-22) Glucose 249 H (80-110) mg/dL Lactate 5.4 H* 2.1 (0.7-2.1) mmol/L Calcium 9.3 (8.4-10.2) mg/dL Total Bilirubin 4.3 H (0.2-1.3) mg/dL Direct Bilirubin 3.1 H (0.0-0.4) mg/dL AST 420 H (17-59) IU/L ALT 382 H (<50) IU/L Alkaline Phosphatase 332 H (38-126) U/L Total Protein 9.1 H (6.3-8.2) g/dL Albumin 4.9 (3.5-5.0) g/dL Globulin 4.2 H (1.7-4.1) g/dL Albumin/Globulin Ratio 1.2 (1.0-2.8) Lipase 284 (23-300) U/L Acetaminophen < 10 (10-30) ug/mL Point of care testing: Urine Dip Bedside Urine Glucose 1000 mg/dl Bedside Urine Bilirubin - Negative Bedside Urine Ketone ++ 40 Urine Specific [place] 1.010 Bedside Urine Occult Blood +/- Bedside Urine pH 6.0 Bedside Urine Protein - Negative Bedside Urine Urobilinogen - Negative Bedside Urine Nitrite - Negative Bedside Urine Leukocytes - Negative Esterase ECG Data Attestation: I personally reviewed and interpreted this ECG as follows: Interpretation: Sinus tachycardia, no obvious ST segment elevation or depression changes. Diffuse low voltage noted. MN 174, QRS 76, QTC 440. MDM Narrative Medical decision making narrative: 69-year-old with history of prior cholecystectomy, reported stomach ulcers, multiple episodes nausea and vomiting, central upper abdominal pain. Tenderness epigastrium. Afebrile on triage, systolic blood pressure 140, sinus tachycardia on monitor. Screening EKG showed sinus tachycardia with diffuse low voltage. Chest x-ray and labs pending. No lower extremity edema, no crackles on lung exam, IV fluid bolus. IV Pepcid. IV morphine/Zofran. White blood cell count 64126, normal renal function, T bili 4.3 elevated (was 0.5 in 06/2023), AST 420 (41), ALT 382 (56), alkaline phosphatase 332 (53). Lipase normal. Lactate 5 elevated, takes metformin but concerning for severe sepsis, further bolus IV fluids 30mL/kg IBW, blood cultures sent, start IV Zosyn. GFR favorable, CT abdomen and pelvis with IV contrast ordered. Keep NPO. 0700, CT abdomen and pelvis ordered, results pending. Signed out to Dr Jimenez <Lana Jimenez DO - Last Filed: 07/30/24 15:58> Lab Data Labs: Lab Results 07/30/24 07/30/24 Range/Units 05:40 07:54 WBC 13.9 H (4.5-11.0) X10^3/uL RBC 5.58 (4.5-5.9) X10^6/uL Hgb 16.8 (13.5-17.5) g/dL Hct 51.4 (41-53) % MCV 92.1 (80-100) fL MCH 30.1 (26-34) PG MCHC 32.7 (30-36) % RDW 14.6 (11.6-14.8) % Plt Count 257 (150-400) X10^3/uL Neut % (Auto) 97.7 H (50-75) % Lymph % (Auto) 1.5 L (25-40) % Rankin % (Auto) 0.4 L (3-14) % Eos % (Auto) 0.0 L (2-4) % Baso % (Auto) 0.4 (0-2) % Neut # (Auto) 70778 H (6442-5867) /uL Lymph # (Auto) 200 L (1787-0991) /uL Rankin # (Auto) 100 (0-900) /uL Eos # (Auto) 0 (0-450) /uL Baso # (Auto) 100 (0-100) /uL PT 13.2 H (9.4-12.5) SECONDS INR 1.2 (0.9-1.3) Sodium 138 (137-145) mmol/L Potassium 4.3 (3.4-5.1) mmol/L Chloride 99 (98-107) mmol/L Carbon Dioxide 19 L (22-32) mmol/L BUN 17 (9-20) mg/dL Creatinine 1.07 (0.66-1.25) mg/dL Estimated GFR > 60 (>60) mL/min BUN/Creatinine Ratio 15.9 (6-22) Glucose 249 H (80-110) mg/dL Lactate 5.4 H* 2.1 (0.7-2.1) mmol/L Calcium 9.3 (8.4-10.2) mg/dL Total Bilirubin 4.3 H (0.2-1.3) mg/dL Direct Bilirubin 3.1 H (0.0-0.4) mg/dL AST 420 H (17-59) IU/L ALT 382 H (<50) IU/L Alkaline Phosphatase 332 H (38-126) U/L Total Protein 9.1 H (6.3-8.2) g/dL Albumin 4.9 (3.5-5.0) g/dL Globulin 4.2 H (1.7-4.1) g/dL Albumin/Globulin Ratio 1.2 (1.0-2.8) Lipase 284 (23-300) U/L Acetaminophen < 10 (10-30) ug/mL Point of care testing: Urine Dip Bedside Urine Glucose 1000 mg/dl Bedside Urine Bilirubin - Negative Bedside Urine Ketone ++ 40 Urine Specific [place] 1.010 Bedside Urine Occult Blood +/- Bedside Urine pH 6.0 Bedside Urine Protein - Negative Bedside Urine Urobilinogen - Negative Bedside Urine Nitrite - Negative Bedside Urine Leukocytes - Negative Esterase Imaging Data CT scan - abdomen/pelvis: Radiologist's Impression: PROCEDURE: CT ABDOMEN PELVIS W CON INDICATIONS: Epigastric pain, tachycardia TECHNIQUE: After the administration of intravenous contrast, axial sections acquired from the lung bases to the pubic symphysis. Coronal and sagittal reformats were performed. For radiation dose reduction, the following was used: automated exposure control, adjustment of mA and/or kV according to patient size. COMPARISON: [facility], CT, CT ABDOMEN PELVIS W CON, 07/02/2023, 4:53. [facility], CT, CT ABDOMEN PELVIS W CON, 07/03/2023, 14:05. [facility], CR, XR CHEST 1V, 07/30/2024, 6:34. FINDINGS: Image quality: Lower Chest: A small hiatal hernia is incidentally noted. ABDOMEN: Liver: No solid mass. Gallbladder: Removed. Biliary ducts: Intrahepatic and extrahepatic biliary ductal dilatation is seen, with the common bile duct measuring 13 mm. Within the distal common bile duct, there is material seen that is higher density seen than the low-density bile within the more proximal common bile duct. Pancreas: No ductal dilation. Spleen: Size is within normal limits. Adrenal Glands: No adrenal nodules. Kidneys and Ureters: No hydronephrosis. No solid mass. No complex renal cystic lesion which requires follow up. There is a 4 mm nonobstructing left-sided kidney stone Stomach and Bowel: Normal colonic caliber, without significant wall thickening. No dilated loops of small bowel are seen. No appendix (either normal or abnormal) is identified on this study. Peritoneum: No abnormal intraperitoneal fluid. No free air. Ventral Wall: No significant ventral hernia. Abdominal Nodes: No retroperitoneal or mesenteric adenopathy by size criteria. Vessels: Aorta and inferior vena cava are normal in size. Atherosclerotic calcification is noted. PELVIS: Pelvic Organs: Unremarkable. Bladder: No bladder wall thickening, accounting for underdistention. Pelvic Nodes: No enlarged lymph nodes. Miscellaneous: Bilateral fat containing inguinal hernias are seen, right larger than left. Bones: No aggressive osseous abnormality. Bilateral L5 pars defects are seen, with grade 1 L5-S1 anterolisthesis IMPRESSION: Cholecystectomy, with biliary dilatation. There is suspicion for distal obstruction within the common bile duct. The appearance is worse than on the prior CT. - If clinically appropriate, an MRCP could be considered for further evaluation (assuming that there is no contraindication to MRI). Additional findings: Small hiatal hernia Nonobstructing left-sided kidney stone Bilateral L5 pars defects, with grade 1 L5-S1 anterolisthesis Bilateral fat containing inguinal hernias Dictated by: Jorge Mar M.D. on 07/30/2024 at 6:10 Chest x-ray: Radiologist's Impression: PROCEDURE: XR CHEST 1V INDICATIONS: post central line placement TECHNIQUE: One view of the chest was acquired. COMPARISON: [facility], CR, XR CHEST 1V, 07/30/2024, 6:34. [facility], CT, CT ANGIO CHEST PE PROTOCOL, 07/03/2023, 14:05. FINDINGS: Surgical changes and devices: There is a right-sided central line, with the tip overlying the inferior aspect of the superior vena cava, 1-2 cm above the cavoatrial junction. Cholecystectomy clips are partially seen. Lungs and pleura: An incomplete inspiratory result is noted, causing a crowded appearance to the lung markings. No focal infiltrates are seen. No pneumothorax or significant pleural effusions are seen. Mediastinum: Mediastinal contours appear normal. Heart size is normal. Bones and chest wall: No suspicious bony lesions. Overlying soft tissues appear unremarkable. IMPRESSION: The tip of the right-sided central line can be seen overlying the inferior aspect of the superior vena cava. Low lung volumes. Dictated by: Jorge Mar M.D. on 07/30/2024 at 10:11 Approved by: Jorge Mar M.D. on 07/30/2024 at 10:12 [facility] Narrative Medical decision making narrative: 69-year-old with history of prior cholecystectomy, reported stomach ulcers, multiple episodes nausea and vomiting, central upper abdominal pain. Tenderness epigastrium. Afebrile on triage, systolic blood pressure 140, sinus tachycardia on monitor. Screening EKG showed sinus tachycardia with diffuse low voltage. Chest x-ray and labs pending. No lower extremity edema, no crackles on lung exam, IV fluid bolus. IV Pepcid. IV morphine/Zofran. White blood cell count 20242, normal renal function, T bili 4.3 elevated (was 0.5 in 06/2023), AST 420 (41), ALT 382 (56), alkaline phosphatase 332 (53). Lipase normal. Lactate 5 elevated, takes metformin but concerning for severe sepsis, further bolus IV fluids 30mL/kg IBW, blood cultures sent, start IV Zosyn. GFR favorable, CT abdomen and pelvis with IV contrast ordered. Keep NPO. 0700, CT abdomen and pelvis ordered, results pending. Signed out to Dr Jimenez 0730 Dr. Jimenez I have received sign-out from Dr. Macias. I have seen evaluated patient myself. Presenting today with multiple episodes nausea vomiting and pain. Concern for sepsis leukocytosis of 13 with elevated lactate of 5. He was given sepsis fluids and Zosyn. There is concern for isolated choledocholithiasis versus cholangitis. He has a elevation of bilirubin and liver enzymes with a prior cholecystectomy 1 year ago. Patient has history of insulin-dependent diabetes hypertension hyperlipidemia. Glucose 249, anion gap 22, lactate 5.4 with repeat 2.1 I suspect secondary to sepsis not DKA CT abdomen pelvis shows biliary dilation suspicion for distal obstruction within the common bile duct. No mass. Patient developed hypotension after sepsis fluids were done blood pressure dropped into the 80's, and was no longer responsive to 500 cc bolus. Levophed was started temporarily through peripheral line central line eventually placed. Patient remains awake alert oriented he tolerated procedure well Initially tried to get an MRCP however patient developed hypotension and Levophed no longer stable for MRCP, so this was not done. 08:40 Dr. Pettit, surgery [place] updated on patient's symptoms test results. Reports that patient would need an ICU bed and a GI specialist he has not the correct person but agrees patient needs to be transferred and an ERCP 08:50 Dr. Ortiz, [facility] updated patient's symptoms test results agrees that patient needs to be transferred, can put him on the schedule for tomorrow at 8:00 a.m. patient does need an ICU bed. 09:05Dr. Carrillo at [facility] accepts 09:25 Dr. Floyd, head piece assembler at [facility] updated on patient's symptoms test results kindly accepts patient 0938 Dr. Lomax, GI at [facility] updated patient's symptoms test results will see patient when they arrived VM bed available 1st, other sites have been canceled. Transport arranged Critical Care Time <Lana Jimenez, - Last Filed: 07/30/24 15:58> Critical Care Time Critical Care Time: Yes Total Critical Care Time: 55 Attestation: The high probability of a clinically significant, sudden or life threatening deterioration of the [cardiovascular] system(s) required my full and direct attention, intervention and personal management. The aggregate critical care time was 55 minutes. This time is in addition to time spent performing reported procedures but includes the following: [x] Data Review and interpretation [x] Patient assessment and monitoring of vital signs [x] Documentation [x] Medication orders and management Discharge Plan Departure Patient Disposition: [facility] Clinical Impression: Septic shock, Acute cholangitis Prescriptions: No Action Aspir-81 81 mg PO DAILY amlodipine 10 mg PO DAILY atorvastatin 80 mg PO DAILY empagliflozin 25 mg PO DAILY escitalopram oxalate 20 mg PO DAILY insulin glargine 30 units SUBCUT ONCE HS losartan 100 mg PO DAILY metformin 1,000 mg PO DAILY metoprolol succinate 50 mg PO DAILY Referrals: Miscellaneous,Doctor, MD [Primary Care Provider] - Stand Alone Forms: Work Release Note
[2024-07-30] MEDS: FAMOTIDINE 20 MG/2 ML VIAL IV (05:45)
--- NOTE | 2024-07-30 05:49 | EKG_ITS ---
[place] [id number] [place] [id number] Test Date: 2024-07-30 Pat Name: Jailene Jang Jr Department: [facility] Room: Gender: Male Director Of Compensation: : 1955 Requested By: Order Number: [id number] Reading MD: Lavon Tucker MD Measurements Intervals [place] Rate: 121 P: 51 ME: 174 QRS: 29 QRSD: 76 T: 49 QT: 310 QTc: 440 Interpretive Statements Sinus tachycardia Nonspecific T wave abnormality Electronically Signed On 07-31-2024 7:32:03 PST by Lavon Tucker MD
--- NOTE | 2024-07-30 05:49 | DI.CT.S_ITS ---
PROCEDURE: CT ABDOMEN PELVIS W CON INDICATIONS: Epigastric pain, tachycardia TECHNIQUE: After the administration of intravenous contrast, axial sections acquired from the lung bases to the pubic symphysis. Coronal and sagittal reformats were performed. For radiation dose reduction, the following was used: automated exposure control, adjustment of mA and/or kV according to patient size. COMPARISON: [facility], CT, CT ABDOMEN PELVIS W CON, 07/02/2023, 4:53. [facility], CT, CT ABDOMEN PELVIS W CON, 07/03/2023, 14:05. [facility], CR, XR CHEST 1V, 07/30/2024, 6:34. FINDINGS: Image quality: Lower Chest: A small hiatal hernia is incidentally noted. ABDOMEN: Liver: No solid mass. Gallbladder: Removed. Biliary ducts: Intrahepatic and extrahepatic biliary ductal dilatation is seen, with the common bile duct measuring 13 mm. Within the distal common bile duct, there is material seen that is higher density seen than the low-density bile within the more proximal common bile duct. Pancreas: No ductal dilation. Spleen: Size is within normal limits. Adrenal Glands: No adrenal nodules. Kidneys and Ureters: No hydronephrosis. No solid mass. No complex renal cystic lesion which requires follow up. There is a 4 mm nonobstructing left-sided kidney stone Stomach and Bowel: Normal colonic caliber, without significant wall thickening. No dilated loops of small bowel are seen. No appendix (either normal or abnormal) is identified on this study. Peritoneum: No abnormal intraperitoneal fluid. No free air. Ventral Wall: No significant ventral hernia. Abdominal Nodes: No retroperitoneal or mesenteric adenopathy by size criteria. Vessels: Aorta and inferior vena cava are normal in size. Atherosclerotic calcification is noted. PELVIS: Pelvic Organs: Unremarkable. Bladder: No bladder wall thickening, accounting for underdistention. Pelvic Nodes: No enlarged lymph nodes. Miscellaneous: Bilateral fat containing inguinal hernias are seen, right larger than left. Bones: No aggressive osseous abnormality. Bilateral L5 pars defects are seen, with grade 1 L5-S1 anterolisthesis IMPRESSION: Cholecystectomy, with biliary dilatation. There is suspicion for distal obstruction within the common bile duct. The appearance is worse than on the prior CT. - If clinically appropriate, an MRCP could be considered for further evaluation (assuming that there is no contraindication to MRI). Additional findings: Small hiatal hernia Nonobstructing left-sided kidney stone Bilateral L5 pars defects, with grade 1 L5-S1 anterolisthesis Bilateral fat containing inguinal hernias Dictated by: Jorge Mar M.D. on 07/30/2024 at 6:10 Approved by: Jorge Mar M.D. on 07/30/2024 at 6:16
[2024-07-30 05:53] LABS: Add Manual Diff / Slide Review NO; Basophils Absolute Auto 100 /uL (0-100); Basophils Percent Auto 0.4 % (0-2); Eosinophils Absolute Auto 0 /uL (0-450); Hematocrit 51.4 % (41-53); Hemoglobin 16.8 g/dL (13.5-17.5); Lymphocytes Absolute Auto 200 /uL (1100-4500); Lymphocytes Percent Auto 1.5 % (25-40); Mean Corpuscular HGB Conc 32.7 % (30-36); Mean Corpuscular Hemoglobin 30.1 PG (26-34); Mean Corpuscular Volume 92.1 fL (80-100); Monocytes Absolute Auto 100 /uL (0-900); Monocytes Percent Auto 0.4 % (3-14); Neutrophils Absolute Auto 13600 /uL (1500-7000); Neutrophils Percent Auto 97.7 % (50-75); Platelet Count 257 X10^3/uL (150-400); Red Blood Cell Count 5.58 X10^6/uL (4.5-5.9); Red Cell Distribution Width 14.6 % (11.6-14.8); White Blood Cell Count 13.9 X10^3/uL (4.5-11.0)
[2024-07-30] MEDS: ONDANSETRON 4 MG/2 ML INJ IV (05:53)
[2024-07-30] MEDS: MORPHINE 4 MG/ML INJ IV (05:53)
[2024-07-30] MEDS: SODIUM CHLORIDE 0.9% 1,000 ML 1000 ML IV (05:54)
[2024-07-30 06:07] LABS: Albumin 4.9 g/dL (3.5-5.0); Albumin Globulin Ratio 1.2 (1.0-2.8); Alkaline Phosphatase 332 U/L (38-126); Aspartate Aminotransferase 420 IU/L (17-59); BUN Creatinine Ratio 15.9 (6-22); Bilirubin Total 4.3 mg/dL (0.2-1.3); Blood Urea Nitrogen 17 mg/dL (9-20); Calcium 9.3 mg/dL (8.4-10.2); Carbon Dioxide 19 mmol/L (22-32); Chloride 99 mmol/L (98-107); Estimated Glomerular Filt Rate > 60 mL/min (>60); Globulin 4.2 g/dL (1.7-4.1); Glucose 249 mg/dL (80-110); Lipase 284 U/L (23-300); Potassium 4.3 mmol/L (3.4-5.1); Sodium 138 mmol/L (137-145); Total Protein 9.1 g/dL (6.3-8.2)
[2024-07-30 06:15] LABS: Alanine Aminotransferase 382 IU/L (<50); HEMOLYSIS 30 (0-50)
[2024-07-30 06:18] LABS: Lactate (Lactic Acid) 5.4 mmol/L (0.7-2.1)
--- NOTE | 2024-07-30 06:21 | DI.RAD.S_ITS ---
PROCEDURE: XR CHEST 1V INDICATIONS: tachycardia, increased lactate TECHNIQUE: One view of the chest was acquired. COMPARISON: , CT, CT ABDOMEN PELVIS W CON, 07/30/2024, 7:24. , CR, XR CHEST 1V, 07/03/2023, 12:48. FINDINGS: Surgical changes and devices: None. Lungs and pleura: An incomplete inspiratory result is noted, causing a crowded appearance to the lung markings. No focal infiltrates are seen. No pneumothorax or significant pleural effusions are seen. Mediastinum: Mediastinal contours appear normal. Heart size is normal. Bones and chest wall: No suspicious bony lesions. Age-appropriate bony degenerative changes are seen. Overlying soft tissues appear unremarkable. IMPRESSION: Low lung volumes, without an acute abnormality seen by plain film. Note: No significant discrepancy from the preliminary report. Dictated by: Jorge Mar M.D. on 07/30/2024 at 6:09 Approved by: Jorge Mar M.D. on 07/30/2024 at 6:10
[2024-07-30 06:26] LABS: INR 1.2 (0.9-1.3); Prothrombin Time 13.2 SECONDS (9.4-12.5)
[2024-07-30 06:40] LABS: Acetaminophen < 10 ug/mL (10-30)
[2024-07-30] MEDS: PIPERACILLIN/TAZO 4.5 GM in SODIUM CHLORIDE 0.9% 100 ML IV (06:58)
[2024-07-30] MEDS: SODIUM CHLORIDE 0.9% 546 ML IV (07:00)
[2024-07-30 07:25] LABS: Reflexed Lactate in 2 Hours Y
[2024-07-30 07:41] LABS: Bilirubin Direct 3.1 mg/dL (0.0-0.4)
[2024-07-30 08:14] LABS: Lactate 2HR (Lactic Acid Rflx) 2.1 mmol/L (0.7-2.1)
--- NOTE | 2024-07-30 08:43 | PC.NURSE ---
Addendum entered by Shellie Nicole CNA 07/30/24 10:50: [facility] accepted patient. Bed Assigned @[id number] Nurse #[phone] ext [phone] Accepting Provider: Addendum entered by Shellie Nicole CNA 07/30/24 09:14: Accepted at [facility], possible bed in 6-12 hours. Kept other request open waiting for call backs. Original Note: Transfer request: request started with SANDRA/AMY Weeks @ 0750. Spoke with Mery at the transfer center. Face sheet, images, EKG, Lab report faxed over to F: [phone]. Patient was waitlisted. Request started with Afsaneh/Barak @ 0814. Spoke with Carter at the transfer center. Face sheet, Images, EKG, Lab Report faxed over to F:[phone]. Was told that it could be a possible 6 to 12 hour wait for a bed. Request started with Enrique @ 0822. Spoke with Dining Room Host Dory who transferred me to speak with the Acute Care Surgeon . Doc to Doc occurred. Face sheet, Images, EKG, Lab Report faxed over to F: [phone]. Spoke again with Dory @ 0856 to check bed status for ICU bed, she will call back with bed status report.
[2024-07-30] MEDS: SODIUM CHLORIDE 0.9% 1,000 ML 100 ML IV (08:44)
[2024-07-30] MEDS: SODIUM CHLORIDE 0.9% 500 ML 1000 ML IV (08:45)
[2024-07-30] MEDS: NOREPINEPHRINE BITARTRATE/D5W 4 MG/250 ML PLAST..BAG 53.411 MG IV (09:10)
--- NOTE | 2024-07-30 10:51 | DI.RAD.S_ITS ---
PROCEDURE: XR CHEST 1V INDICATIONS: post central line placement TECHNIQUE: One view of the chest was acquired. COMPARISON: [facility], CR, XR CHEST 1V, 07/30/2024, 6:34. [facility], CT, CT ANGIO CHEST PE PROTOCOL, 07/03/2023, 14:05. FINDINGS: Surgical changes and devices: There is a right-sided central line, with the tip overlying the inferior aspect of the superior vena cava, 1-2 cm above the cavoatrial junction. Cholecystectomy clips are partially seen. Lungs and pleura: An incomplete inspiratory result is noted, causing a crowded appearance to the lung markings. No focal infiltrates are seen. No pneumothorax or significant pleural effusions are seen. Mediastinum: Mediastinal contours appear normal. Heart size is normal. Bones and chest wall: No suspicious bony lesions. Overlying soft tissues appear unremarkable. IMPRESSION: The tip of the right-sided central line can be seen overlying the inferior aspect of the superior vena cava. Low lung volumes. Dictated by: Jorge Mar M.D. on 07/30/2024 at 10:11 Approved by: Jorge Mar M.D. on 07/30/2024 at 10:12
--- NOTE | 2024-07-30 10:54 | PC.NURSE ---
Set up room for central line placement. Pt consented by Dr Jimenez, signed consent placed in chart. Assisted Dr Jimenez with procedure. Pt tolerated well.
--- NOTE | 2024-07-30 11:07 | PC.NURSE ---
Levophed moved to Cental line with new tubing after Dr Jimenez verified placement via chest xray.
[2024-07-30 21:13] LABS: Acinetobacter calcoa-baumannii Not Detected (Not Detect); Bacteroides fragilis Not Detected (Not Detect); CTX-M Resistance Not Detected (Not Detect); Candida albicans Not Detected (Not Detect); Candida auris Not Detected (Not Detect); Candida glabrata Not Detected (Not Detect); Candida krusei Not Detected (Not Detect); Candida parapsilosis Not Detected (Not Detect); Candida tropicalis Not Detected (Not Detect); Cryptococcus neoformans/gatti Not Detected (Not Detect); Enterobacter cloacae complex Not Detected (Not Detect); Enterobacterales Detected (Not Detect); Enterococcus faecalis Not Detected (Not Detect); Enterococcus faecium Not Detected (Not Detect); Haemophilus influenzae Not Detected (Not Detect); IMP Resistance Not Detected (Not Detect); KPC Resistance Not Detected (Not Detect); Klebsiella aerogenes Not Detected (Not Detect); Listeria monocytogenes Not Detected (Not Detect); NDM Resistance Not Detected (Not Detect); Neisseria meningitidis Not Detected (Not Detect); OXA-48-like Resistance Not Detected (Not Detect); Proteus species Not Detected (Not Detect); Pseudomonas aeruginosa Not Detected (Not Detect); Salmonella species Not Detected (Not Detect); Serratia marcescens Not Detected (Not Detect); Staphylococcus epidermidis Not Detected (Not Detect); Staphylococcus lugdunensis Not Detected (Not Detect); Staphylococcus species Not Detected (Not Detect); Stenotrophomonas maltophilia Not Detected (Not Detect); Streptococcus agalactiae (Gr B Not Detected (Not Detect); Streptococcus pneumonia Not Detected (Not Detect); Streptococcus pyogenes (Gr A) Not Detected (Not Detect); Streptococcus species Not Detected (Not Detect); VIM Resistance Not Detected (Not Detect); mcr-1 Resistance Not Detected (Not Detect)
[2024-08-01 02:08] LABS: HBsAg Screen Negative (Negative); Hepatitis A Antibody IgM Negative (Negative); Hepatitis B Core Antibody IgM Negative (Negative); Hepatitis C Antibody Non Reactive (Non Reactive)
== END 2024-07-30 11:19 | disposition short-term general hospital (02) ==
PROVIDERS: Emergency Medicine; Emergency Provider Emergency Medicine
DX: A41.9 Sepsis, unspecified organism (principal); R65.21 Severe sepsis with septic shock; R00.0 Tachycardia, unspecified; K83.09 Other cholangitis; R11.2 Nausea with vomiting, unspecified
CPT/HCPCS: 36415; 36569; 71045; 74177; 80053; 80074; 80329; 81003; 82248; 83605; 83690; 85025; 85610; 87040; 87154; 87186; 93005; 93010; 96361; 96365; 96367; 96375; 99285; 99291; G0480; J2270; J2405; J2543; Q9967